=== PATIENT | female | born 1965 | race African-American/Black ===

== ENCOUNTER 2021-05-11 13:12 | Emergency (ER) | payer OTHER ==
[2021-05-11 13:23] VITALS: PULSE 92; BMI 35.4
[2021-05-11] MEDS ORDERED: ACETAMINOPHEN 1000 MG/100 ML VIAL (NON FORMULARY) IVPB ONE (14:39)
[2021-05-11] MEDS ORDERED: METOCLOPRAMIDE HCL INJECTION 10 MG/2 ML VIAL IVPB ONE (14:39)
[2021-05-11] MEDS ORDERED: SODIUM CHLORIDE 1,000 ML IV STA (14:39)
[2021-05-11] MEDS ORDERED: KETOROLAC TROMETHAMINE 60 MG/2 ML VIAL IVPUSH ONE (14:39)
[2021-05-11] MEDS ORDERED: METOCLOPRAMIDE HCL INJECTION 10 MG/2 ML VIAL ONE (14:43)
[2021-05-11] MEDS ORDERED: ACETAMINOPHEN INJECTION 100 ML IVPB ONE (14:43)
[2021-05-11 15:19] LABS: BASO % 1.6 % (0-2.0); EOS % 1.4 % (0-4.5); HEMATOCRIT 38.9 % (32.4-45.2); HEMOGLOBIN 12.9 GM/dL (10.7-15.3); LYMPH % 48.5 % (8-40); MCH 29.3 pg (25.7-33.7); MCHC 33.1 g/dl (32.0-36.0); MEAN CELL VOLUME 88.5 fl (80-96); MEAN PLT VOLUME 8.8 fl (7.5-11.1); MONO % 9.6 % (3.8-10.2); NEUT % 38.9 % (42.8-82.8); PLATELET COUNT 178 10^3/uL (134-434); RDW 15.1 % (11.6-15.6); WHITE BLOOD COUNT 4.3 K/mm3 (4.0-10.0)
[2021-05-11 15:26] LABS: INR 1.13 (0.83-1.09); PROTHROMBIN TIME (PATIENT) 13.6 SEC (9.7-13.0)
[2021-05-11 15:48] LABS: ALBUMIN 4.2 g/dl (3.4-5.0); BLOOD UREA NITROGEN 11.3 mg/dL (7-18); CALCIUM 9.5 mg/dL (8.5-10.1)
[2021-05-11 15:49] LABS: CREATININE 0.9 mg/dL (0.55-1.3)
[2021-05-11 15:51] LABS: BILIRUBIN,TOTAL 0.3 mg/dL (0.2-1); TOT PROT 7.7 g/dl (6.4-8.2)
[2021-05-11 16:52] LABS: EPI CELLS 29 /uL (0-25.1); HYALINE CASTS 5 /uL (0-3.1); URINE APPEARANCE CLEAR; URINE BACTERIA 1209 /uL (0-1359); URINE BILIRUBIN NEGATIVE (NEGATIVE); URINE COLOR YELLOW; URINE GLUCOSE (UA) NEGATIVE (NEGATIVE); URINE KETONE TRACE (NEGATIVE); URINE LEUK ESTERASE 2+ (NEGATIVE); URINE NITRITE NEGATIVE (NEGATIVE); URINE PROTEIN NEGATIVE (NEGATIVE); URINE RBC 47 /uL (0-23.9); URINE WBC 135 /uL (0-25.8)
[2021-05-11] MEDS ORDERED: KETOROLAC TROMETHAMINE 30 MG/1 ML VIAL ONE (17:00)
[2021-05-11 18:28] VITALS: BP 135/77; TEMP 98.7
== END 2021-05-11 18:12 | disposition home or self-care (01) ==
LOC: JER 13:12
PROC: 3E033NZ Introduction of Analgesics, Hypnotics, Sedatives into Peripheral Vein, Percutaneous Approach (ICD-10-PCS; principal; 2021-05-11)
PROC: 3E033GC Introduction of Other Therapeutic Substance into Peripheral Vein, Percutaneous Approach (ICD-10-PCS; 2021-05-11)
PROC: 3E0333Z Introduction of Anti-inflammatory into Peripheral Vein, Percutaneous Approach (ICD-10-PCS; 2021-05-11)
PROC: 3E0337Z Introduction of Electrolytic and Water Balance Substance into Peripheral Vein, Percutaneous Approach (ICD-10-PCS; 2021-05-11)
DX: R51.9 Headache, unspecified (principal); N30.00 Acute cystitis without hematuria
CPT/HCPCS: 36415; 70450-TC; 80053; 81003; 85025; 85610; 87086; 99285-25; J0131

== ENCOUNTER 2022-03-30 08:56 | Observation (INO) | payer OTHER ==
[2022-03-30 09:15] VITALS: BMI 35.4
[2022-03-30] MEDS: SODIUM CHLORIDE 1,000 ML IV SCH (10:20)
[2022-03-30 11:12] LABS: BASO % 1.1 % (0-2.0); EOS % 1.1 % (0-4.5); HEMATOCRIT 40.8 % (32.4-45.2); HEMOGLOBIN 13.3 GM/dL (10.7-15.3); LYMPH % 40.1 % (8-40); MCH 29.1 pg (25.7-33.7); MCHC 32.6 g/dl (32.0-36.0); MEAN CELL VOLUME 89.5 fl (80-96); MEAN PLT VOLUME 8.8 fl (7.5-11.1); NEUT % 47.7 % (42.8-82.8); PLATELET COUNT 173 10^3/uL (134-434); RBC 4.56 M/mm3 (3.60-5.2); RDW 14.3 % (11.6-15.6); WHITE BLOOD COUNT 4.2 K/mm3 (4.0-10.0)
[2022-03-30 11:15] LABS: EPI CELLS 8 /uL (0-25.1); HYALINE CASTS 0 /uL (0-3.1); PH,URINE 8.5 (5.0-8.0); URINE APPEARANCE CLEAR; URINE BACTERIA 137 /uL (0-1359); URINE BILIRUBIN NEGATIVE (NEGATIVE); URINE COLOR YELLOW; URINE GLUCOSE (UA) NEGATIVE (NEGATIVE); URINE KETONE NEGATIVE (NEGATIVE); URINE LEUK ESTERASE TRACE (NEGATIVE); URINE NITRITE NEGATIVE (NEGATIVE); URINE PROTEIN NEGATIVE (NEGATIVE); URINE RBC 5 /uL (0-23.9); URINE UROBILINOGEN 0.2 mg/dL (0.2-1.0); URINE WBC 4 /uL (0-25.8)
[2022-03-30 11:19] LABS: INR 1.11 (0.83-1.09); PROTHROMBIN TIME (PATIENT) 12.8 SEC (9.7-13.0)
[2022-03-30 11:22] LABS: ACTIVATED PTT 34.2 SECONDS (25.2-36.5)
[2022-03-30 11:35] LABS: CALCIUM 9.5 mg/dL (8.5-10.1)
[2022-03-30 11:36] LABS: ALBUMIN 4.1 g/dl (3.4-5.0); BLOOD UREA NITROGEN 9.2 mg/dL (7-18)
[2022-03-30 11:38] LABS: BILIRUBIN,TOTAL 0.4 mg/dL (0.2-1)
[2022-03-30 11:40] LABS: TOT PROT 7.2 g/dl (6.4-8.2)
[2022-03-30] MEDS ORDERED: POLYETHYLENE GLYCOL (HEALTHYLAX) 3350 17 GM PACKET PO PRN (14:33)
[2022-03-30] MEDS ORDERED: NAPROXEN 500 MG PO PRN (14:39)
[2022-03-30] MEDS ORDERED: LISINOPRIL 10 MG TABLET PO SCH (14:45)
[2022-03-30] MEDS ORDERED: LISINOPRIL 5 MG TABLET ONE (14:46)
[2022-03-30] MEDS: ASPIRIN COATED 81 MG TABLET.EC PO SCH (14:52)
[2022-03-30] MEDS ORDERED: MELATONIN 5 MG TABLETS PO PRN (15:26)
[2022-03-30] MEDS: traZODone HCL 50 MG TABLET (FP) PO SCH (23:13)
[2022-03-30] MEDS: ACETAMINOPHEN 325 MG TABLET (FP) PO PRN (23:14)
[2022-03-30] MEDS: ATORVASTATIN CA 10 MG TABLET (FP) PO SCH (23:16)
[2022-03-31 06:57] LABS: BASO % 0.8 % (0-2.0); EOS % 2.8 % (0-4.5); HEMATOCRIT 38.9 % (32.4-45.2); HEMOGLOBIN 12.5 GM/dL (10.7-15.3); LYMPH % 41.2 % (8-40); MCH 29.2 pg (25.7-33.7); MCHC 32.2 g/dl (32.0-36.0); MEAN CELL VOLUME 90.6 fl (80-96); MEAN PLT VOLUME 9.2 fl (7.5-11.1); MONO % 10.4 % (3.8-10.2); NEUT % 44.8 % (42.8-82.8); PLATELET COUNT 162 10^3/uL (134-434); RBC 4.29 M/mm3 (3.60-5.2); RDW 14.7 % (11.6-15.6); WHITE BLOOD COUNT 4.1 K/mm3 (4.0-10.0)
[2022-03-31 07:44] LABS: BLOOD UREA NITROGEN 11.6 mg/dL (7-18); CALCIUM 8.7 mg/dL (8.5-10.1)
[2022-03-31 07:47] LABS: CREATININE 0.9 mg/dL (0.55-1.3)
[2022-03-31] MEDS ORDERED: PATIENT'S OWN MEDICATION (NON-FORMULARY) (Dolutegravir Sodium/Lamivudine [Dovato 50-300 Mg PO SCH (10:00)
[2022-03-31] MEDS ORDERED: PNEUMOC 20-VAL CONJ-DIP CRM/PF 0.5 ML SYRINGE IM ONE (10:00)
[2022-03-31] MEDS: amLODIPine BESYLATE 10 MG TABLET (FP) PO SCH (10:07)
[2022-03-31] MEDS: SODIUM CHLORIDE 1,000 ML IV SCH (10:07)
[2022-03-31] MEDS: ASPIRIN COATED 81 MG TABLET.EC PO SCH (10:07)
[2022-03-31] MEDS: SERTRALINE HCL 50 MG TABLET (FP) PO SCH (10:07)
[2022-03-31] MEDS: ENOXAPARIN NA (PORCINE) 40 MG/0.4 ML DISP.SYRIN SQ SCH (10:08)
[2022-03-31] MEDS: DOLUTEGRAVIR SODIUM 50 MG TABLET (NON-FORMULARY) PO SCH (10:34)
[2022-03-31] MEDS: lamiVUDine 150 MG TABLET PO SCH (10:34)
[2022-03-31] MEDS: traZODone HCL 50 MG TABLET (FP) PO SCH (21:31)
[2022-03-31] MEDS: ATORVASTATIN CA 10 MG TABLET (FP) PO SCH (21:31)
[2022-04-01 07:22] LABS: BASO % 0.8 % (0-2.0); EOS % 2.7 % (0-4.5); HEMATOCRIT 38.1 % (32.4-45.2); HEMOGLOBIN 12.5 GM/dL (10.7-15.3); LYMPH % 42.6 % (8-40); MCH 29.5 pg (25.7-33.7); MCHC 32.8 g/dl (32.0-36.0); MEAN CELL VOLUME 90.1 fl (80-96); MEAN PLT VOLUME 8.3 fl (7.5-11.1); MONO % 12.1 % (3.8-10.2); NEUT % 41.8 % (42.8-82.8); PLATELET COUNT 142 10^3/uL (134-434); RBC 4.23 M/mm3 (3.60-5.2); RDW 14.5 % (11.6-15.6); WHITE BLOOD COUNT 3.5 K/mm3 (4.0-10.0)
[2022-04-01 07:40] LABS: ALBUMIN 3.5 g/dl (3.4-5.0); BLOOD UREA NITROGEN 12.4 mg/dL (7-18); CALCIUM 9.4 mg/dL (8.5-10.1); MAGNESIUM 2.5 mg/dL (1.8-2.4)
[2022-04-01 07:44] LABS: PHOSPHOROUS 4.4 mg/dL (2.5-4.9)
[2022-04-01 07:45] LABS: BILIRUBIN,TOTAL 0.4 mg/dL (0.2-1)
[2022-04-01 07:46] LABS: TOT PROT 6.5 g/dl (6.4-8.2)
[2022-04-01] MEDS: ACETAMINOPHEN 325 MG TABLET (FP) PO PRN (09:00)
[2022-04-01] MEDS: ENOXAPARIN NA (PORCINE) 40 MG/0.4 ML DISP.SYRIN SQ SCH (09:15)
[2022-04-01] MEDS: ASPIRIN COATED 81 MG TABLET.EC PO SCH (09:16)
[2022-04-01] MEDS: amLODIPine BESYLATE 10 MG TABLET (FP) PO SCH (09:16)
[2022-04-01] MEDS: SERTRALINE HCL 50 MG TABLET (FP) PO SCH (09:16)
[2022-04-01] MEDS: lamiVUDine 150 MG TABLET PO SCH (09:17)
[2022-04-01] MEDS: DOLUTEGRAVIR SODIUM 50 MG TABLET (NON-FORMULARY) PO SCH (09:17)
[2022-04-01 14:32] VITALS: BP 125/69; PULSE 91; TEMP 98.9
== END 2022-04-01 17:28 | disposition home or self-care (01) ==
LOC: JER 08:56 → JERBED 12:43 → UNDOADMOB 12:43 → INTOOBSV 12:43 → JERBED 12:44 → J4W 21:23
PROVIDERS: ADMIT Internal Medicine; ATTEND Internal Medicine
PROC: 3E023GC Introduction of Other Therapeutic Substance into Muscle, Percutaneous Approach (ICD-10-PCS; principal; 2022-03-30)
PROC: 3E0337Z Introduction of Electrolytic and Water Balance Substance into Peripheral Vein, Percutaneous Approach (ICD-10-PCS; 2022-03-30)
DX: Z87.891 Personal history of nicotine dependence (principal); E66.8 Other obesity; Z68.35 Body mass index [BMI] 35.0-35.9, adult; F32.9 Major depressive disorder, single episode, unspecified; R41.82 Altered mental status, unspecified; H81.10 Benign paroxysmal vertigo, unspecified ear; E78.5 Hyperlipidemia, unspecified; R73.03 Prediabetes; Z29.8 Encounter for other specified prophylactic measures; Z21 Asymptomatic human immunodeficiency virus [HIV] infection status
CPT/HCPCS: 0241U-QW; 36415; 70450-TC; 70551-TC; 71046-TC-FY; 80048; 80053; 80061; 81003; 83036; 83735; 84100; 84439; 84443; 85025; 85610; 85730; 86850; 86900; 86901; 93005; 93010; 93306-TC; 93880-TC; 99285-25; G0378

== ENCOUNTER 2022-06-19 15:33 | Inpatient (IN) | payer OTHER ==
[2022-06-19 15:37] VITALS: BMI 34.9
[2022-06-19] MEDS ORDERED: ACETAMINOPHEN 500 MG TABLET (FP) PO ONE (17:18)
[2022-06-19] MEDS ORDERED: MECLIZINE HCL 25 MG TABLET (FP) PO ONE (17:18)
[2022-06-19] MEDS ORDERED: MECLIZINE HCL 25 MG TABLET (FP) ONE (17:43)
[2022-06-19] MEDS ORDERED: ACETAMINOPHEN 500 MG TABLET (FP) ONE (17:43)
[2022-06-19 18:34] LABS: BASO % 0.5 % (0-2.0); EOS % 0.8 % (0-4.5); HEMATOCRIT 40.8 % (32.4-45.2); HEMOGLOBIN 13.3 GM/dL (10.7-15.3); LYMPH % 31.5 % (8-40); MCH 29.4 pg (25.7-33.7); MCHC 32.7 g/dl (32.0-36.0); MEAN CELL VOLUME 89.9 fl (80-96); MEAN PLT VOLUME 8.9 fl (7.5-11.1); MONO % 6.6 % (3.8-10.2); NEUT % 60.6 % (42.8-82.8); PLATELET COUNT 167 10^3/uL (134-434); RBC 4.53 M/mm3 (3.60-5.2); RDW 14.6 % (11.6-15.6); WHITE BLOOD COUNT 5.5 K/mm3 (4.0-10.0)
[2022-06-19 18:41] LABS: INR 1.13 (0.83-1.09)
[2022-06-19 18:44] LABS: ACTIVATED PTT 32.5 SECONDS (25.2-36.5)
[2022-06-19 18:45] LABS: CALCIUM 9.1 mg/dL (8.5-10.1)
[2022-06-19 18:46] LABS: BLOOD UREA NITROGEN 8.9 mg/dL (7-18)
[2022-06-19 18:49] LABS: CREATININE 0.9 mg/dL (0.55-1.3)
[2022-06-19 18:51] LABS: BILIRUBIN,TOTAL 0.4 mg/dL (0.2-1); TOT PROT 7.3 g/dl (6.4-8.2)
[2022-06-19 21:32] LABS: EPI CELLS 4 /uL (0-25.1); HYALINE CASTS 0 /uL (0-3.1); PH,URINE 7.5 (5.0-8.0); URINE APPEARANCE CLEAR; URINE BACTERIA 13 /uL (0-1359); URINE BILIRUBIN NEGATIVE (NEGATIVE); URINE COLOR YELLOW; URINE GLUCOSE (UA) NEGATIVE (NEGATIVE); URINE KETONE NEGATIVE (NEGATIVE); URINE LEUK ESTERASE 1+ (NEGATIVE); URINE NITRITE NEGATIVE (NEGATIVE); URINE PROTEIN NEGATIVE (NEGATIVE); URINE RBC 30 /uL (0-23.9); URINE UROBILINOGEN 0.2 mg/dL (0.2-1.0); URINE WBC 48 /uL (0-25.8)
[2022-06-19] MEDS ORDERED: POLYETHYLENE GLYCOL (HEALTHYLAX) 3350 17 GM PACKET PO PRN (21:39)
[2022-06-19] MEDS ORDERED: MELATONIN 5 MG TABLETS PO PRN (21:39)
[2022-06-19] MEDS ORDERED: PATIENT'S OWN MEDICATION (NON-FORMULARY) (Dolutegravir Sodium/Lamivudine [Dovato 50-300 Mg PO SCH (21:45)
[2022-06-19] MEDS ORDERED: MECLIZINE HCL 12.5 MG TABLET PO ONE (23:01)
[2022-06-19] MEDS ORDERED: MECLIZINE HCL 12.5 MG TABLET ONE (23:31)
[2022-06-19] MEDS ORDERED: ATORVASTATIN CA 10 MG TABLET (FP) ONE (23:31)
[2022-06-19] MEDS: lamiVUDine 150 MG TABLET PO SCH (23:53)
[2022-06-19] MEDS: ATORVASTATIN CA 10 MG TABLET (FP) PO SCH (23:54)
[2022-06-19] MEDS: traZODone HCL 100 MG TABLET (FP) PO SCH (23:54)
[2022-06-20] MEDS: DOLUTEGRAVIR SODIUM 50 MG TABLET (NON-FORMULARY) PO SCH ×2 (00:13→10:26)
[2022-06-20 07:28] LABS: HEMATOCRIT 41.4 % (32.4-45.2); HEMOGLOBIN 13.8 GM/dL (10.7-15.3); MCH 29.8 pg (25.7-33.7); MCHC 33.2 g/dl (32.0-36.0); MEAN CELL VOLUME 89.6 fl (80-96); MEAN PLT VOLUME 8.7 fl (7.5-11.1); PLATELET COUNT 169 10^3/uL (134-434); RBC 4.62 M/mm3 (3.60-5.2); RDW 14.9 % (11.6-15.6); WHITE BLOOD COUNT 4.5 K/mm3 (4.0-10.0)
[2022-06-20 07:44] LABS: CALCIUM 9.3 mg/dL (8.5-10.1)
[2022-06-20 07:45] LABS: BLOOD UREA NITROGEN 9.3 mg/dL (7-18); MAGNESIUM 2.4 mg/dL (1.8-2.4)
[2022-06-20 07:48] LABS: CREATININE 1.1 mg/dL (0.55-1.3); PHOSPHOROUS 4.1 mg/dL (2.5-4.9)
[2022-06-20 07:49] LABS: BILIRUBIN,TOTAL 0.4 mg/dL (0.2-1)
[2022-06-20 07:50] LABS: TOT PROT 7.3 g/dl (6.4-8.2)
[2022-06-20] MEDS ORDERED: SERTRALINE HCL 50 MG TABLET (FP) ONE (10:17)
[2022-06-20] MEDS ORDERED: amLODIPine BESYLATE 10 MG TABLET (FP) ONE (10:17)
[2022-06-20] MEDS ORDERED: ENOXAPARIN NA (PORCINE) 40 MG/0.4 ML DISP.SYRIN SQ ONE (10:17)
[2022-06-20] MEDS: amLODIPine BESYLATE 10 MG TABLET (FP) PO SCH (10:26)
[2022-06-20] MEDS: lamiVUDine 150 MG TABLET PO SCH (10:26)
[2022-06-20] MEDS: SERTRALINE HCL 50 MG TABLET (FP) PO SCH (10:26)
[2022-06-20] MEDS: ENOXAPARIN NA (PORCINE) 40 MG/0.4 ML DISP.SYRIN SQ SCH (10:30)
[2022-06-20 11:12] LABS: EPI CELLS 9 /uL (0-25.1); HYALINE CASTS 1 /uL (0-3.1); PH,URINE 6.5 (5.0-8.0); URINE APPEARANCE CLEAR; URINE BACTERIA 19 /uL (0-1359); URINE BILIRUBIN NEGATIVE (NEGATIVE); URINE COLOR YELLOW; URINE GLUCOSE (UA) NEGATIVE (NEGATIVE); URINE KETONE NEGATIVE (NEGATIVE); URINE LEUK ESTERASE 2+ (NEGATIVE); URINE NITRITE NEGATIVE (NEGATIVE); URINE PROTEIN NEGATIVE (NEGATIVE); URINE RBC 30 /uL (0-23.9); URINE WBC 19 /uL (0-25.8)
[2022-06-20 12:42] LABS: URINE BARBITURATES NEGATIVE (NEGATIVE)
[2022-06-20 12:43] LABS: COCAINE, UR NEGATIVE (NEGATIVE); METHADONE, UR NEGATIVE (NEGATIVE); OPIATES, URI NEGATIVE (NEGATIVE); PHENCYCLIDINE,URINE NEGATIVE (NEGATIVE); URINE BENZODIAZEPINES NEGATIVE (NEGATIVE)
[2022-06-20 12:44] LABS: URINE AMPHETAMINES NEGATIVE (NEGATIVE)
[2022-06-20] MEDS ORDERED: traZODone HCL 50 MG TABLET (FP) ONE (20:51)
[2022-06-20] MEDS: ATORVASTATIN CA 10 MG TABLET (FP) PO SCH (21:25)
[2022-06-20] MEDS: traZODone HCL 100 MG TABLET (FP) PO SCH (21:27)
[2022-06-21 07:43] LABS: BASO % 0.7 % (0-2.0); EOS % 2.5 % (0-4.5); HEMATOCRIT 38.8 % (32.4-45.2); HEMOGLOBIN 12.8 GM/dL (10.7-15.3); LYMPH % 40.7 % (8-40); MCH 29.6 pg (25.7-33.7); MEAN CELL VOLUME 89.7 fl (80-96); MEAN PLT VOLUME 8.6 fl (7.5-11.1); MONO % 10.5 % (3.8-10.2); NEUT % 45.6 % (42.8-82.8); PLATELET COUNT 141 10^3/uL (134-434); RBC 4.33 M/mm3 (3.60-5.2); RDW 15.2 % (11.6-15.6); WHITE BLOOD COUNT 3.9 K/mm3 (4.0-10.0)
[2022-06-21 08:10] LABS: ALBUMIN 3.4 g/dl (3.4-5.0); BLOOD UREA NITROGEN 15.2 mg/dL (7-18); CALCIUM 9.1 mg/dL (8.5-10.1); MAGNESIUM 2.3 mg/dL (1.8-2.4)
[2022-06-21 08:12] LABS: BILIRUBIN,TOTAL 0.3 mg/dL (0.2-1); TOT PROT 6.4 g/dl (6.4-8.2)
[2022-06-21] MEDS: SERTRALINE HCL 50 MG TABLET (FP) PO SCH (09:24)
[2022-06-21] MEDS: amLODIPine BESYLATE 10 MG TABLET (FP) PO SCH (09:24)
[2022-06-21] MEDS: DOLUTEGRAVIR SODIUM 50 MG TABLET (NON-FORMULARY) PO SCH (09:24)
[2022-06-21] MEDS: lamiVUDine 150 MG TABLET PO SCH (09:25)
[2022-06-21] MEDS: ENOXAPARIN NA (PORCINE) 40 MG/0.4 ML DISP.SYRIN SQ SCH (09:25)
[2022-06-21] MEDS ORDERED: traZODone HCL 50 MG TABLET (FP) ONE (21:25)
[2022-06-21] MEDS: traZODone HCL 100 MG TABLET (FP) PO SCH (21:40)
[2022-06-21] MEDS: ATORVASTATIN CA 10 MG TABLET (FP) PO SCH (21:40)
[2022-06-22 07:58] LABS: BASO % 0.6 % (0-2.0); HEMATOCRIT 39.8 % (32.4-45.2); LYMPH % 40.7 % (8-40); MCH 29.2 pg (25.7-33.7); MCHC 32.6 g/dl (32.0-36.0); MEAN CELL VOLUME 89.6 fl (80-96); MEAN PLT VOLUME 8.7 fl (7.5-11.1); MONO % 9.8 % (3.8-10.2); NEUT % 45.9 % (42.8-82.8); PLATELET COUNT 154 10^3/uL (134-434); RBC 4.44 M/mm3 (3.60-5.2); WHITE BLOOD COUNT 3.8 K/mm3 (4.0-10.0)
[2022-06-22 08:25] LABS: ALBUMIN 3.5 g/dl (3.4-5.0); BLOOD UREA NITROGEN 14.2 mg/dL (7-18)
[2022-06-22 08:26] LABS: MAGNESIUM 2.1 mg/dL (1.8-2.4)
[2022-06-22 08:29] LABS: CREATININE 1.1 mg/dL (0.55-1.3); PHOSPHOROUS 3.7 mg/dL (2.5-4.9)
[2022-06-22 08:31] VITALS: BP 155/86; PULSE 85; RESP 19; TEMP 98.6
[2022-06-22 08:31] LABS: BILIRUBIN,TOTAL 0.4 mg/dL (0.2-1); TOT PROT 6.5 g/dl (6.4-8.2)
[2022-06-22] MEDS: DOLUTEGRAVIR SODIUM 50 MG TABLET (NON-FORMULARY) PO SCH (09:39)
[2022-06-22] MEDS: lamiVUDine 150 MG TABLET PO SCH (09:39)
[2022-06-22] MEDS ORDERED: SERTRALINE HCL 50 MG TABLET (FP) PO SCH (22:00)
== END 2022-06-22 19:35 | disposition home or self-care (01) | DRG 724 ==
LOC: JER 15:33 → JERBED 19:04 → J4W 06-20 13:16
PROVIDERS: ADMIT Internal Medicine; ATTEND Internal Medicine
DX: A53.9 Syphilis, unspecified (principal); Z21 Asymptomatic human immunodeficiency virus [HIV] infection status; R51.9 Headache, unspecified; H53.8 Other visual disturbances; G45.8 Other transient cerebral ischemic attacks and related syndromes; E78.5 Hyperlipidemia, unspecified; I10 Essential (primary) hypertension; F32.A Depression, unspecified; E66.9 Obesity, unspecified; Z68.34 Body mass index [BMI] 34.0-34.9, adult; I51.7 Cardiomegaly; R42 Dizziness and giddiness; R41.82 Altered mental status, unspecified; R55 Syncope and collapse
CPT/HCPCS: 36415; 70450-TC; 70553-TC; 71045-TC-FY; 80053; 80307; 81003; 82607; 83735; 84100; 84439; 84443; 84484; 85025; 85027; 85610; 85730; 86359; 86360; 86593; 86780; 87086; 99285-25; A9579; C9803-CS; U0003; U0005

== ENCOUNTER → 2022-07-24 | Day surgery (SDC) | payer OTHER | END | disposition home or self-care (01) | LOC: JRADIR 10:36 | PROVIDERS: ATTEND Internal Medicine Endocrinology, Diabetes & Metabolism | PROC: 0G9K3ZX Drainage of Thyroid Gland, Percutaneous Approach, Diagnostic (ICD-10-PCS; principal; 2022-07-24) | DX: E04.1 Nontoxic single thyroid nodule (principal) | CPT/HCPCS: 10005; 76942; 88173; 88305-TC ==

== ENCOUNTER 2022-12-10 20:34 | Emergency (ER) | payer OTHER ==
[2022-12-10 20:48] VITALS: BMI 34.4
[2022-12-10 22:04] LABS: EPI CELLS 8 /uL (0-25.1); HYALINE CASTS 1 /uL (0-3.1); URINE APPEARANCE CLOUDY; URINE BACTERIA 9 /uL (0-1359); URINE BILIRUBIN NEGATIVE (NEGATIVE); URINE COLOR YELLOW; URINE GLUCOSE (UA) NEGATIVE (NEGATIVE); URINE KETONE NEGATIVE (NEGATIVE); URINE LEUK ESTERASE TRACE (NEGATIVE); URINE NITRITE NEGATIVE (NEGATIVE); URINE PROTEIN 1+ (NEGATIVE); URINE RBC 158 /uL (0-23.9); URINE WBC 29 /uL (0-25.8)
[2022-12-10 23:39] LABS: BASO % 0.5 % (0-2.0); HEMATOCRIT 43.5 % (32.4-45.2); HEMOGLOBIN 14.2 GM/dL (10.7-15.3); LYMPH % 29.1 % (8-40); MCH 29.1 pg (25.7-33.7); MCHC 32.6 g/dl (32.0-36.0); MEAN CELL VOLUME 89.2 fl (80-96); MEAN PLT VOLUME 8.9 fl (7.5-11.1); MONO % 8.1 % (3.8-10.2); NEUT % 61.3 % (42.8-82.8); PLATELET COUNT 198 10^3/uL (134-434); RBC 4.88 M/mm3 (3.60-5.2); RDW 15.5 % (11.6-15.6)
[2022-12-11 00:27] LABS: ALBUMIN 3.3 g/dl (3.4-5.0); CALCIUM 8.3 mg/dL (8.5-10.1)
[2022-12-11 00:30] LABS: CREATININE 0.8 mg/dL (0.55-1.3)
[2022-12-11 00:32] LABS: BILIRUBIN,TOTAL 0.6 mg/dL (0.2-1); TOT PROT 6.6 g/dl (6.4-8.2)
[2022-12-11 03:25] VITALS: BP 118/72; PULSE 104; RESP 18; TEMP 98.2
== END 2022-12-11 03:25 | disposition short-term general hospital (02) ==
LOC: JER 20:34
DX: T81.40XA Infection following a procedure, unspecified, initial encounter (principal); R00.2 Palpitations
CPT/HCPCS: 0241U-QW; 36415; 71045-TC-FY; 80053; 81003; 84436; 84443; 84484; 85025; 87086; 93005; 93010; 99285-25

== ENCOUNTER 2023-04-16 18:41 | Inpatient (IN) | payer OTHER ==
[2023-04-16 20:03] LABS: BASO % 0.5 % (0-2.0); EOS % 0.4 % (0-4.5); HEMATOCRIT 41.8 % (32.4-45.2); HEMOGLOBIN 13.7 GM/dL (10.7-15.3); LYMPH % 21.2 % (8-40); MCH 28.6 pg (25.7-33.7); MCHC 32.9 g/dl (32.0-36.0); MEAN CELL VOLUME 87.1 fl (80-96); MEAN PLT VOLUME 9.4 fl (7.5-11.1); MONO % 4.9 % (3.8-10.2); PLATELET COUNT 206 10^3/uL (134-434); RDW 15.8 % (11.6-15.6); WHITE BLOOD COUNT 8.1 K/mm3 (4.0-10.0)
[2023-04-16 20:09] LABS: INR 1.12 (0.83-1.09)
[2023-04-16 20:21] LABS: CHLORIDE 106 mmol/L (98-107); POTASSIUM 3.7 mmol/L (3.5-5.1); SODIUM 138 mmol/L (136-145)
[2023-04-16 20:23] LABS: ALBUMIN 4.4 g/dl (3.4-5.0); ANION GAP 8 MMOL/L (8-16); CALCIUM 9.4 mg/dL (8.5-10.1); CO2 25 mmol/L (21-32)
[2023-04-16 20:24] LABS: GLUCOSE,RANDOM 130 mg/dL (74-106)
[2023-04-16 20:25] LABS: BLOOD UREA NITROGEN 13.8 mg/dL (7-18)
[2023-04-16 20:26] LABS: CREATININE 0.9 mg/dL (0.55-1.3); SGPT/ALT 30 U/L (13-61)
[2023-04-16 20:27] LABS: SGOT/AST 29 U/L (15-37)
[2023-04-16 20:28] LABS: CHOLESTEROL 202 mg/dL (50-200)
[2023-04-16 20:29] LABS: BILIRUBIN,TOTAL 0.6 mg/dL (0.2-1); LDL CHOLESTEROL (ONLY SJRH) 102 mg/dL (5-100)
[2023-04-16 20:30] LABS: ALK PHOS 89 U/L (45-117)
[2023-04-16 20:31] LABS: HDL CHOLESTEROL 75 mg/dL (40-60)
[2023-04-16] MEDS ORDERED: ONDANSETRON 4 MG/2 ML VIAL ONE (21:00)
[2023-04-16] MEDS ORDERED: ONDANSETRON 4 MG/2 ML VIAL IVPUSH ONE ×2 (21:24→21:25)
[2023-04-16] MEDS ORDERED: ASPIRIN 81 MG CHEWABLE TABLETS PO STA (22:02)
[2023-04-16] MEDS ORDERED: ASPIRIN 81 MG CHEWABLE TABLETS ONE (22:25)
[2023-04-16] MEDS ORDERED: POLYETHYLENE GLYCOL (HEALTHYLAX) 3350 17 GM PACKET PO PRN (22:51)
[2023-04-17 02:52] VITALS: BMI 33.4
[2023-04-17 06:51] LABS: HEMATOCRIT 39.6 % (32.4-45.2); HEMOGLOBIN 13.7 GM/dL (10.7-15.3); MCH 29.9 pg (25.7-33.7); MCHC 34.6 g/dl (32.0-36.0); MEAN CELL VOLUME 86.6 fl (80-96); MEAN PLT VOLUME 9.4 fl (7.5-11.1); PLATELET COUNT 190 10^3/uL (134-434); RBC 4.57 M/mm3 (3.60-5.2); RDW 15.8 % (11.6-15.6); WHITE BLOOD COUNT 7.6 K/mm3 (4.0-10.0)
[2023-04-17 07:03] LABS: EPI CELLS 9 /uL (0-25.1); HYALINE CASTS 1 /uL (0-3.1); PH,URINE 5.5 (5.0-8.0); URINE APPEARANCE CLEAR; URINE BACTERIA 18 /uL (0-1359); URINE BILIRUBIN NEGATIVE (NEGATIVE); URINE COLOR YELLOW; URINE GLUCOSE (UA) NEGATIVE (NEGATIVE); URINE KETONE NEGATIVE (NEGATIVE); URINE LEUK ESTERASE NEGATIVE (NEGATIVE); URINE NITRITE NEGATIVE (NEGATIVE); URINE PROTEIN 2+ (NEGATIVE); URINE UROBILINOGEN 0.2 mg/dL (0.2-1.0); URINE WBC 8 /uL (0-25.8)
[2023-04-17 07:37] LABS: POTASSIUM 3.5 mmol/L (3.5-5.1)
[2023-04-17 07:40] LABS: CALCIUM 8.8 mg/dL (8.5-10.1)
[2023-04-17 07:41] LABS: ALBUMIN 3.9 g/dl (3.4-5.0); BLOOD UREA NITROGEN 11.4 mg/dL (7-18); MAGNESIUM 1.9 mg/dL (1.8-2.4)
[2023-04-17 07:44] LABS: PHOSPHOROUS 2.6 mg/dL (2.5-4.9)
[2023-04-17 07:45] LABS: BILIRUBIN,TOTAL 0.7 mg/dL (0.2-1)
[2023-04-17 07:46] LABS: TOT PROT 7.5 g/dl (6.4-8.2)
[2023-04-17] MEDS: DOLUTEGRAVIR SODIUM 50 MG TABLET (NON-FORMULARY) PO SCH (09:35)
[2023-04-17] MEDS: amLODIPine BESYLATE 10 MG TABLET (FP) PO SCH (09:35)
[2023-04-17] MEDS: lamiVUDine 150 MG TABLET PO SCH (09:35)
[2023-04-17] MEDS: MULTIVITAMINS (DAILY MVI) TABLET (FP) PO SCH (09:35)
[2023-04-17] MEDS: CARVEDILOL 6.25 MG TABLET (FP) PO SCH ×2 (09:35→21:18)
[2023-04-17] MEDS ORDERED: PATIENT'S OWN MEDICATION (NON-FORMULARY) (Dolutegravir Sodium/Lamivudine [Dovato 50-300 Mg PO SCH (10:00)
[2023-04-17] MEDS ORDERED: ASPIRIN 81 MG CHEWABLE TABLETS PO SCH (10:00)
[2023-04-17] MEDS ORDERED: ENOXAPARIN NA (PORCINE) 40 MG/0.4 ML DISP.SYRIN SQ SCH (10:00)
[2023-04-17 11:48] LABS: COCAINE, UR NEGATIVE (NEGATIVE); METHADONE, UR NEGATIVE (NEGATIVE); PHENCYCLIDINE,URINE NEGATIVE (NEGATIVE); URINE BENZODIAZEPINES NEGATIVE (NEGATIVE)
[2023-04-17 11:49] LABS: OPIATES, URI NEGATIVE (NEGATIVE); URINE BARBITURATES NEGATIVE (NEGATIVE)
[2023-04-17 11:52] LABS: URINE AMPHETAMINES NEGATIVE (NEGATIVE)
[2023-04-17 15:29] LABS: URINE RBC 111.4 /uL (0-23.9)
[2023-04-17 15:38] LABS: YEAST NEGATIVE (NEGATIVE)
[2023-04-17] MEDS: traZODone HCL 100 MG TABLET (FP) PO SCH (21:18)
[2023-04-17] MEDS: SERTRALINE HCL 50 MG TABLET (FP) PO SCH (21:18)
[2023-04-17] MEDS: ATORVASTATIN CA 40 MG TABLET (FP) PO SCH (21:18)
[2023-04-17] MEDS ORDERED: ATORVASTATIN CA 10 MG TABLET (FP) PO SCH (22:00)
[2023-04-18 06:36] LABS: HEMATOCRIT 42.1 % (32.4-45.2); HEMOGLOBIN 14.3 GM/dL (10.7-15.3); MCH 29.7 pg (25.7-33.7); MCHC 33.9 g/dl (32.0-36.0); MEAN CELL VOLUME 87.5 fl (80-96); MEAN PLT VOLUME 9.4 fl (7.5-11.1); PLATELET COUNT 209 10^3/uL (134-434); RBC 4.81 M/mm3 (3.60-5.2); RDW 15.7 % (11.6-15.6); WHITE BLOOD COUNT 8.5 K/mm3 (4.0-10.0)
[2023-04-18 06:56] LABS: POTASSIUM 3.5 mmol/L (3.5-5.1)
[2023-04-18 06:58] LABS: BLOOD UREA NITROGEN 14.9 mg/dL (7-18)
[2023-04-18 07:01] LABS: CREATININE 1.1 mg/dL (0.55-1.3)
[2023-04-18] MEDS ORDERED: VALSARTAN 40 MG TABLET PO SCH ×2 (10:00)
[2023-04-18] MEDS: CARVEDILOL 6.25 MG TABLET (FP) PO SCH ×2 (10:07→22:43)
[2023-04-18] MEDS: lamiVUDine 150 MG TABLET PO SCH (10:07)
[2023-04-18] MEDS: MULTIVITAMINS (DAILY MVI) TABLET (FP) PO SCH (10:07)
[2023-04-18] MEDS: amLODIPine BESYLATE 10 MG TABLET (FP) PO SCH (10:07)
[2023-04-18] MEDS: DOLUTEGRAVIR SODIUM 50 MG TABLET (NON-FORMULARY) PO SCH (10:08)
[2023-04-18] MEDS ORDERED: CLOPIDOGREL BISULFATE 75 MG TABLET (FP) PO SCH (16:45)
[2023-04-18] MEDS: traZODone HCL 100 MG TABLET (FP) PO SCH (22:43)
[2023-04-18] MEDS: ATORVASTATIN CA 40 MG TABLET (FP) PO SCH (22:44)
[2023-04-18] MEDS: SERTRALINE HCL 50 MG TABLET (FP) PO SCH (22:44)
[2023-04-19] MEDS ORDERED: ACETAMINOPHEN 1000 MG/100 ML BAG IVPB PRN (01:29)
[2023-04-19 06:42] LABS: HEMATOCRIT 41.1 % (32.4-45.2); HEMOGLOBIN 14.3 GM/dL (10.7-15.3); MCH 30.3 pg (25.7-33.7); MCHC 34.7 g/dl (32.0-36.0); MEAN CELL VOLUME 87.4 fl (80-96); MEAN PLT VOLUME 9.1 fl (7.5-11.1); PLATELET COUNT 193 10^3/uL (134-434); RBC 4.71 M/mm3 (3.60-5.2); RDW 15.3 % (11.6-15.6); WHITE BLOOD COUNT 6.7 K/mm3 (4.0-10.0)
[2023-04-19 06:56] LABS: POTASSIUM 3.7 mmol/L (3.5-5.1)
[2023-04-19 07:00] LABS: BLOOD UREA NITROGEN 12.3 mg/dL (7-18); CALCIUM 8.7 mg/dL (8.5-10.1)
[2023-04-19] MEDS: lamiVUDine 150 MG TABLET PO SCH (09:08)
[2023-04-19] MEDS: MULTIVITAMINS (DAILY MVI) TABLET (FP) PO SCH (09:08)
[2023-04-19] MEDS: CARVEDILOL 6.25 MG TABLET (FP) PO SCH ×2 (09:08→22:05)
[2023-04-19] MEDS: DOLUTEGRAVIR SODIUM 50 MG TABLET (NON-FORMULARY) PO SCH (09:08)
[2023-04-19] MEDS: amLODIPine BESYLATE 10 MG TABLET (FP) PO SCH (09:09)
[2023-04-19] MEDS: VALSARTAN 80 MG TABLET PO SCH (09:09)
[2023-04-19 10:28] LABS: ANISOCYTOSIS 0; MACROCYTOSIS 0
[2023-04-19 14:02] LABS: BF GLUCOSE (CSF ONLY) 75 mg/dL (40-70)
[2023-04-19 14:49] LABS: CSF APPEARANCE CLEAR (CLEAR); CSF COLOR COLORLESS (COLORLESS); CSF WBC 1 mm3 (0-5)
[2023-04-19] MEDS: traZODone HCL 100 MG TABLET (FP) PO SCH (22:05)
[2023-04-19] MEDS: SERTRALINE HCL 50 MG TABLET (FP) PO SCH (22:05)
[2023-04-19] MEDS: ATORVASTATIN CA 40 MG TABLET (FP) PO SCH (22:05)
[2023-04-20 07:41] LABS: POTASSIUM 3.2 mmol/L (3.5-5.1)
[2023-04-20 07:42] LABS: CALCIUM 8.6 mg/dL (8.5-10.1)
[2023-04-20 07:43] LABS: BLOOD UREA NITROGEN 12.2 mg/dL (7-18)
[2023-04-20 07:46] LABS: CREATININE 0.9 mg/dL (0.55-1.3)
[2023-04-20] MEDS ORDERED: POTASSIUM CHLORIDE TABS 20 MEQ TABLET.ER (FP) PO ONE (07:52)
[2023-04-20] MEDS: amLODIPine BESYLATE 10 MG TABLET (FP) PO SCH (09:05)
[2023-04-20] MEDS: MULTIVITAMINS (DAILY MVI) TABLET (FP) PO SCH (09:05)
[2023-04-20] MEDS: DOLUTEGRAVIR SODIUM 50 MG TABLET (NON-FORMULARY) PO SCH (09:05)
[2023-04-20] MEDS: lamiVUDine 150 MG TABLET PO SCH (09:05)
[2023-04-20] MEDS: CARVEDILOL 6.25 MG TABLET (FP) PO SCH ×2 (09:05→21:21)
[2023-04-20] MEDS: VALSARTAN 80 MG TABLET PO SCH (09:05)
[2023-04-20] MEDS: CLOPIDOGREL BISULFATE 75 MG TABLET (FP) PO SCH (09:07)
[2023-04-20] MEDS: ASPIRIN COATED 81 MG TABLET.EC PO SCH (09:07)
[2023-04-20] MEDS: traZODone HCL 100 MG TABLET (FP) PO SCH (21:20)
[2023-04-20] MEDS: ATORVASTATIN CA 40 MG TABLET (FP) PO SCH (21:20)
[2023-04-20] MEDS: MELATONIN 5 MG TABLETS PO PRN (21:21)
[2023-04-20] MEDS: SERTRALINE HCL 50 MG TABLET (FP) PO SCH (21:21)
[2023-04-21] MEDS: BENZOCAINE/MENTH/CETYLPYRD CL 1 EACH LOZENGE MM PRN ×3 (05:57→21:21)
[2023-04-21 07:16] LABS: BASO % 0.6 % (0-2.0); EOS % 1.1 % (0-4.5); HEMATOCRIT 38.4 % (32.4-45.2); HEMOGLOBIN 13.2 GM/dL (10.7-15.3); LYMPH % 40.5 % (8-40); MCH 29.8 pg (25.7-33.7); MCHC 34.5 g/dl (32.0-36.0); MEAN CELL VOLUME 86.5 fl (80-96); MEAN PLT VOLUME 9.1 fl (7.5-11.1); NEUT % 45.8 % (42.8-82.8); PLATELET COUNT 165 10^3/uL (134-434); RBC 4.44 M/mm3 (3.60-5.2); RDW 15.4 % (11.6-15.6); WHITE BLOOD COUNT 5.6 K/mm3 (4.0-10.0)
[2023-04-21 07:41] LABS: POTASSIUM 3.4 mmol/L (3.5-5.1)
[2023-04-21 07:45] LABS: ALBUMIN 3.4 g/dl (3.4-5.0); CALCIUM 8.6 mg/dL (8.5-10.1)
[2023-04-21 07:46] LABS: BLOOD UREA NITROGEN 14.2 mg/dL (7-18)
[2023-04-21 07:48] LABS: CREATININE 1.1 mg/dL (0.55-1.3)
[2023-04-21 07:50] LABS: BILIRUBIN,TOTAL 0.5 mg/dL (0.2-1); TOT PROT 6.3 g/dl (6.4-8.2)
[2023-04-21] MEDS: lamiVUDine 150 MG TABLET PO SCH (09:29)
[2023-04-21] MEDS: CLOPIDOGREL BISULFATE 75 MG TABLET (FP) PO SCH (09:29)
[2023-04-21] MEDS: DOLUTEGRAVIR SODIUM 50 MG TABLET (NON-FORMULARY) PO SCH (09:29)
[2023-04-21] MEDS: ASPIRIN COATED 81 MG TABLET.EC PO SCH (09:29)
[2023-04-21] MEDS: MULTIVITAMINS (DAILY MVI) TABLET (FP) PO SCH (09:29)
[2023-04-21] MEDS: POTASSIUM CHLORIDE TABS 20 MEQ TABLET.ER (FP) PO SCH (19:00)
[2023-04-21] MEDS: CARVEDILOL 6.25 MG TABLET (FP) PO SCH (21:44)
[2023-04-21] MEDS: ATORVASTATIN CA 40 MG TABLET (FP) PO SCH (21:44)
[2023-04-21] MEDS: traZODone HCL 100 MG TABLET (FP) PO SCH (21:44)
[2023-04-21] MEDS: SERTRALINE HCL 50 MG TABLET (FP) PO SCH (21:44)
[2023-04-22] MEDS: BENZOCAINE/MENTH/CETYLPYRD CL 1 EACH LOZENGE MM PRN (05:39)
[2023-04-22 09:30] LABS: POTASSIUM 3.8 mmol/L (3.5-5.1)
[2023-04-22 09:40] LABS: ALBUMIN 3.6 g/dl (3.4-5.0); BLOOD UREA NITROGEN 14.6 mg/dL (7-18); CALCIUM 8.8 mg/dL (8.5-10.1)
[2023-04-22 09:43] LABS: CREATININE 1.2 mg/dL (0.55-1.3)
[2023-04-22] MEDS: POTASSIUM CHLORIDE TABS 20 MEQ TABLET.ER (FP) PO SCH (09:44)
[2023-04-22] MEDS: CLOPIDOGREL BISULFATE 75 MG TABLET (FP) PO SCH (09:44)
[2023-04-22] MEDS: amLODIPine BESYLATE 10 MG TABLET (FP) PO SCH (09:44)
[2023-04-22] MEDS: ASPIRIN COATED 81 MG TABLET.EC PO SCH (09:44)
[2023-04-22 09:45] LABS: BILIRUBIN,TOTAL 0.5 mg/dL (0.2-1); TOT PROT 6.7 g/dl (6.4-8.2)
[2023-04-22] MEDS: MULTIVITAMINS (DAILY MVI) TABLET (FP) PO SCH (09:45)
[2023-04-22] MEDS: CARVEDILOL 6.25 MG TABLET (FP) PO SCH ×2 (09:45→21:06)
[2023-04-22] MEDS: DOLUTEGRAVIR SODIUM 50 MG TABLET (NON-FORMULARY) PO SCH (09:50)
[2023-04-22] MEDS: lamiVUDine 150 MG TABLET PO SCH (10:02)
[2023-04-22] MEDS: traZODone HCL 100 MG TABLET (FP) PO SCH (21:06)
[2023-04-22] MEDS: SERTRALINE HCL 50 MG TABLET (FP) PO SCH (21:06)
[2023-04-22] MEDS: ATORVASTATIN CA 40 MG TABLET (FP) PO SCH (21:06)
[2023-04-22] MEDS: MELATONIN 5 MG TABLETS PO PRN (21:08)
[2023-04-22 21:16] VITALS: RESP 17
[2023-04-23 06:03] VITALS: PULSE 77
[2023-04-23 09:22] VITALS: BP 109/70; TEMP 98.2
[2023-04-23] MEDS: MULTIVITAMINS (DAILY MVI) TABLET (FP) PO SCH (09:58)
[2023-04-23] MEDS: ASPIRIN COATED 81 MG TABLET.EC PO SCH (09:58)
[2023-04-23] MEDS: CARVEDILOL 6.25 MG TABLET (FP) PO SCH (09:58)
[2023-04-23] MEDS: POTASSIUM CHLORIDE TABS 20 MEQ TABLET.ER (FP) PO SCH (09:58)
[2023-04-23] MEDS: CLOPIDOGREL BISULFATE 75 MG TABLET (FP) PO SCH (09:59)
[2023-04-23] MEDS: amLODIPine BESYLATE 10 MG TABLET (FP) PO SCH (09:59)
[2023-04-23] MEDS: lamiVUDine 150 MG TABLET PO SCH (09:59)
[2023-04-23] MEDS: DOLUTEGRAVIR SODIUM 50 MG TABLET (NON-FORMULARY) PO SCH (09:59)
[2023-04-23] MEDS ORDERED: PENICILLIN G BENZATHINE 2,400,000 UNIT/4 ML PFS IM ONE (13:30)
== END 2023-04-23 14:44 | disposition home or self-care (01) | DRG 47 ==
LOC: JER 18:41 → JERBED 20:08 → J4S 04-17 02:11
PROVIDERS: ADMIT Internal Medicine; ATTEND Internal Medicine
PROC: 4A00X4Z Measurement of Central Nervous Electrical Activity, External Approach (ICD-10-PCS; 2023-04-17)
PROC: 009U3ZX Drainage of Spinal Canal, Percutaneous Approach, Diagnostic (ICD-10-PCS; principal; 2023-04-19)
DX: G45.8 Other transient cerebral ischemic attacks and related syndromes (principal); I10 Essential (primary) hypertension; E78.5 Hyperlipidemia, unspecified; F32.A Depression, unspecified; Z21 Asymptomatic human immunodeficiency virus [HIV] infection status; G93.49 Other encephalopathy; Z86.73 Personal history of transient ischemic attack (TIA), and cerebral infarction without residual deficits
CPT/HCPCS: 0241U-QW; 36415; 62272; 70450-TC; 70496-TC; 70498-TC; 70551-TC; 71045-TC-FY; 80048; 80053; 80061; 80307; 81003; 82550; 82607; 82746; 82945; 82962; 83036; 83735; 84100; 84157; 84439; 84443; 84484; 85025; 85027; 85610; 85730; 86359; 86360; 86592; 86593; 86780; 87040; 87070; 87086; 87205; 87536; 93005; 93010; 93306-TC; 94010; 95816; 97116-GP; 97161-GP; 99285-25; G0480

== ENCOUNTER 2023-07-28 13:20 | Inpatient (IN) | payer OTHER ==
[2023-07-28] MEDS ORDERED: SODIUM CHLORIDE 1,000 ML IV STA (16:45)
[2023-07-28] MEDS ORDERED: CLINDAMYCIN 600MG PREMIX IVPB 600 MG/50 ML BAG IVPB ONE ×3 (16:51→22:35)
[2023-07-28] MEDS ORDERED: ACETAMINOPHEN 1000 MG/100 ML BAG IVPB ONE (16:54)
[2023-07-28] MEDS ORDERED: ACETAMINOPHEN INJECTION 100 ML IVPB ONE (17:32)
[2023-07-28 17:38] LABS: BASO % 1.3 % (0-2.0); EOS % 1.7 % (0-4.5); HEMOGLOBIN 11.9 GM/dL (10.7-15.3); LYMPH % 40.3 % (8-40); MCH 29.1 pg (25.7-33.7); MCHC 33.1 g/dl (32.0-36.0); MEAN CELL VOLUME 87.8 fl (80-96); MEAN PLT VOLUME 8.5 fl (7.5-11.1); MONO % 14.6 % (3.8-10.2); NEUT % 42.1 % (42.8-82.8); PLATELET COUNT 189 10^3/uL (134-434); RBC 4.09 M/mm3 (3.60-5.2); RDW 13.5 % (11.6-15.6); WHITE BLOOD COUNT 3.4 K/mm3 (4.0-10.0)
[2023-07-28 17:50] LABS: EPI CELLS 3 /uL (0-25.1); HYALINE CASTS 1 /uL (0-3.1); PH,URINE 6.5 (5.0-8.0); URINE APPEARANCE CLEAR; URINE BACTERIA 3 /uL (0-1359); URINE BILIRUBIN NEGATIVE (NEGATIVE); URINE COLOR YELLOW; URINE GLUCOSE (UA) NEGATIVE (NEGATIVE); URINE KETONE NEGATIVE (NEGATIVE); URINE LEUK ESTERASE 1+ (NEGATIVE); URINE NITRITE NEGATIVE (NEGATIVE); URINE PROTEIN NEGATIVE (NEGATIVE); URINE RBC 71 /uL (0-23.9); URINE WBC 19 /uL (0-25.8)
[2023-07-28 17:52] LABS: ACTIVATED PTT 31.6 SECONDS (25.2-36.5); INR 1.13 (0.83-1.09); PROTHROMBIN TIME (PATIENT) 13.1 SEC (9.7-13.0)
[2023-07-28 18:04] LABS: POTASSIUM 3.3 mmol/L (3.5-5.1)
[2023-07-28 18:06] LABS: CALCIUM 8.4 mg/dL (8.5-10.1)
[2023-07-28 18:07] LABS: ALBUMIN 3.9 g/dl (3.4-5.0); BLOOD UREA NITROGEN 12.5 mg/dL (7-18)
[2023-07-28 18:10] LABS: CREATININE 0.9 mg/dL (0.55-1.3)
[2023-07-28 18:12] LABS: BILIRUBIN,TOTAL 0.3 mg/dL (0.2-1); TOT PROT 7.1 g/dl (6.4-8.2)
[2023-07-28] MEDS ORDERED: POTASSIUM CHLORIDE ORAL LIQUID 20 MEQ/15 ML PO ONE (19:10)
[2023-07-28 20:20] LABS: ERYTHROCYTE SEDIMENTATION RATE 20 mm/hr (0-30)
[2023-07-28] MEDS ORDERED: POTASSIUM CHLORIDE ORAL LIQUID 20 MEQ/15 ML ONE ×2 (20:32→20:40)
[2023-07-28] MEDS ORDERED: ENOXAPARIN NA (PORCINE) 40 MG/0.4 ML DISP.SYRIN SQ ONE (21:43)
[2023-07-28] MEDS: ENOXAPARIN NA (PORCINE) 40 MG/0.4 ML DISP.SYRIN SQ SCH (21:56)
[2023-07-28] MEDS: SODIUM CHLORIDE 1,000 ML IV SCH (21:56)
[2023-07-28] MEDS ORDERED: traZODone HCL 100 MG TABLET (FP) ONE (22:33)
[2023-07-28] MEDS ORDERED: SERTRALINE HCL 50 MG TABLET (FP) ONE (22:34)
[2023-07-28] MEDS ORDERED: ATORVASTATIN CA 40 MG TABLET (FP) ONE (22:34)
[2023-07-28] MEDS ORDERED: CARVEDILOL 6.25 MG TABLET (FP) ONE (22:50)
[2023-07-28] MEDS: CARVEDILOL 6.25 MG TABLET (FP) PO SCH (23:15)
[2023-07-28] MEDS: CLINDAMYCIN 600MG PREMIX IVPB 600 MG/50 ML BAG IVPB SCH (23:30)
[2023-07-28] MEDS: ATORVASTATIN CA 40 MG TABLET (FP) PO SCH (23:30)
[2023-07-28] MEDS: SERTRALINE HCL 50 MG TABLET (FP) PO SCH (23:30)
[2023-07-29] MEDS: traZODone HCL 50 MG TABLET (FP) PO SCH ×2 (03:59→22:53)
[2023-07-29] MEDS ORDERED: CLINDAMYCIN 600MG PREMIX IVPB 600 MG/50 ML BAG IVPB ONE ×2 (04:02→10:15)
[2023-07-29] MEDS: CLINDAMYCIN 600MG PREMIX IVPB 600 MG/50 ML BAG IVPB SCH ×3 (04:03→18:20)
[2023-07-29] MEDS ORDERED: INSULIN SLIDING SCALE (NOVOLOG) 1 VIAL SQ SCH (07:00)
[2023-07-29] MEDS: INSULIN SLIDING SCALE (NOVOLOG) 1 VIAL SQ SCH ×4 (07:56→23:31)
[2023-07-29 08:12] LABS: BASO % 0.7 % (0-2.0); EOS % 2.9 % (0-4.5); HEMOGLOBIN 11.1 GM/dL (10.7-15.3); LYMPH % 52.4 % (8-40); MCH 29.1 pg (25.7-33.7); MCHC 32.5 g/dl (32.0-36.0); MEAN CELL VOLUME 89.4 fl (80-96); MEAN PLT VOLUME 9.2 fl (7.5-11.1); PLATELET COUNT 183 10^3/uL (134-434); RDW 13.6 % (11.6-15.6); WHITE BLOOD COUNT 2.7 K/mm3 (4.0-10.0)
[2023-07-29 08:24] LABS: POTASSIUM 3.7 mmol/L (3.5-5.1)
[2023-07-29 08:32] LABS: BLOOD UREA NITROGEN 8.6 mg/dL (7-18)
[2023-07-29 08:33] LABS: BILIRUBIN,TOTAL 0.3 mg/dL (0.2-1); TOT PROT 6.4 g/dl (6.4-8.2)
[2023-07-29 08:34] LABS: CALCIUM 7.8 mg/dL (8.5-10.1)
[2023-07-29 08:35] LABS: ALBUMIN 3.3 g/dl (3.4-5.0); CREATININE 0.7 mg/dL (0.55-1.3)
[2023-07-29] MEDS ORDERED: PATIENT'S OWN MEDICATION (NON-FORMULARY) (Dolutegravir Sodium/Lamivudine [Dovato 50-300 Mg PO SCH (10:00)
[2023-07-29] MEDS: CARVEDILOL 6.25 MG TABLET (FP) PO SCH ×2 (10:11→22:53)
[2023-07-29] MEDS: amLODIPine BESYLATE 10 MG TABLET (FP) PO SCH (10:11)
[2023-07-29] MEDS: ENOXAPARIN NA (PORCINE) 40 MG/0.4 ML DISP.SYRIN SQ SCH (10:11)
[2023-07-29] MEDS: DOLUTEGRAVIR SODIUM 50 MG TABLET (NON-FORMULARY) PO SCH (10:12)
[2023-07-29] MEDS: CLOPIDOGREL BISULFATE 75 MG TABLET (FP) PO SCH (10:12)
[2023-07-29] MEDS: lamiVUDine 150 MG TABLET PO SCH (10:13)
[2023-07-29] MEDS ORDERED: CLOPIDOGREL BISULFATE 75 MG TABLET (FP) ONE (10:16)
[2023-07-29] MEDS: SODIUM CHLORIDE 1,000 ML IV SCH ×2 (18:20→22:54)
[2023-07-29 18:24] VITALS: BMI 33.3
[2023-07-29] MEDS: ATORVASTATIN CA 40 MG TABLET (FP) PO SCH (22:53)
[2023-07-29] MEDS: SERTRALINE HCL 50 MG TABLET (FP) PO SCH (22:53)
[2023-07-30] MEDS: CLINDAMYCIN 600MG PREMIX IVPB 600 MG/50 ML BAG IVPB SCH ×3 (01:25→17:50)
[2023-07-30] MEDS: INSULIN SLIDING SCALE (NOVOLOG) 1 VIAL SQ SCH ×4 (06:24→21:18)
[2023-07-30] MEDS: SODIUM CHLORIDE 1,000 ML IV SCH ×2 (06:25→18:21)
[2023-07-30] MEDS: CARVEDILOL 6.25 MG TABLET (FP) PO SCH ×2 (09:58→21:15)
[2023-07-30] MEDS: ENOXAPARIN NA (PORCINE) 40 MG/0.4 ML DISP.SYRIN SQ SCH (09:58)
[2023-07-30] MEDS: CLOPIDOGREL BISULFATE 75 MG TABLET (FP) PO SCH (09:58)
[2023-07-30] MEDS: amLODIPine BESYLATE 10 MG TABLET (FP) PO SCH (09:59)
[2023-07-30] MEDS: lamiVUDine 150 MG TABLET PO SCH (10:01)
[2023-07-30] MEDS: DOLUTEGRAVIR SODIUM 50 MG TABLET (NON-FORMULARY) PO SCH (10:01)
[2023-07-30 16:39] LABS: BASO % 0.5 % (0-2.0); EOS % 2.7 % (0-4.5); HEMATOCRIT 34.8 % (32.4-45.2); HEMOGLOBIN 11.5 GM/dL (10.7-15.3); LYMPH % 50.5 % (8-40); MCH 28.9 pg (25.7-33.7); MEAN CELL VOLUME 87.7 fl (80-96); MEAN PLT VOLUME 8.4 fl (7.5-11.1); MONO % 11.7 % (3.8-10.2); NEUT % 34.6 % (42.8-82.8); PLATELET COUNT 195 10^3/uL (134-434); RBC 3.97 M/mm3 (3.60-5.2); RDW 13.6 % (11.6-15.6); WHITE BLOOD COUNT 3.6 K/mm3 (4.0-10.0)
[2023-07-30] MEDS ORDERED: INSULIN (NOVOLOG) ASPART 100 UNITS/ML 10ML VIAL ONE (21:10)
[2023-07-30] MEDS: traZODone HCL 50 MG TABLET (FP) PO SCH (21:14)
[2023-07-30] MEDS: SERTRALINE HCL 50 MG TABLET (FP) PO SCH (21:15)
[2023-07-30] MEDS: ATORVASTATIN CA 40 MG TABLET (FP) PO SCH (21:15)
[2023-07-31 00:03] LABS: MAGNESIUM 1.9 mg/dL (1.8-2.4)
[2023-07-31 00:07] LABS: PHOSPHOROUS 3.3 mg/dL (2.5-4.9)
[2023-07-31] MEDS: CLINDAMYCIN 600MG PREMIX IVPB 600 MG/50 ML BAG IVPB SCH (01:27)
[2023-07-31 05:40] VITALS: PULSE 89
[2023-07-31] MEDS: INSULIN SLIDING SCALE (NOVOLOG) 1 VIAL SQ SCH ×2 (07:12→11:40)
[2023-07-31] MEDS ORDERED: CLINDAMYCIN HCL 150 MG CAPSULE (FP) PO SCH (07:45)
[2023-07-31] MEDS: SODIUM CHLORIDE 1,000 ML IV SCH (08:37)
[2023-07-31 09:51] LABS: BASO % 0.6 % (0-2.0); EOS % 2.8 % (0-4.5); HEMATOCRIT 35.7 % (32.4-45.2); HEMOGLOBIN 11.9 GM/dL (10.7-15.3); LYMPH % 44.4 % (8-40); MCH 29.4 pg (25.7-33.7); MCHC 33.3 g/dl (32.0-36.0); MEAN CELL VOLUME 88.2 fl (80-96); MEAN PLT VOLUME 8.2 fl (7.5-11.1); MONO % 8.8 % (3.8-10.2); NEUT % 43.4 % (42.8-82.8); PLATELET COUNT 203 10^3/uL (134-434); RBC 4.04 M/mm3 (3.60-5.2); RDW 13.8 % (11.6-15.6); WHITE BLOOD COUNT 3.4 K/mm3 (4.0-10.0)
[2023-07-31] MEDS: DOLUTEGRAVIR SODIUM 50 MG TABLET (NON-FORMULARY) PO SCH (09:59)
[2023-07-31] MEDS: lamiVUDine 150 MG TABLET PO SCH (09:59)
[2023-07-31] MEDS: amLODIPine BESYLATE 10 MG TABLET (FP) PO SCH (10:00)
[2023-07-31] MEDS: ENOXAPARIN NA (PORCINE) 40 MG/0.4 ML DISP.SYRIN SQ SCH (10:00)
[2023-07-31] MEDS: CARVEDILOL 6.25 MG TABLET (FP) PO SCH (10:00)
[2023-07-31] MEDS: CLOPIDOGREL BISULFATE 75 MG TABLET (FP) PO SCH (10:00)
[2023-07-31 10:12] LABS: POTASSIUM 3.9 mmol/L (3.5-5.1)
[2023-07-31 10:16] LABS: CALCIUM 8.6 mg/dL (8.5-10.1)
[2023-07-31 10:17] LABS: ALBUMIN 3.4 g/dl (3.4-5.0); BLOOD UREA NITROGEN 8.5 mg/dL (7-18); MAGNESIUM 1.9 mg/dL (1.8-2.4)
[2023-07-31 10:21] LABS: TOT PROT 6.8 g/dl (6.4-8.2)
[2023-07-31 10:22] LABS: BILIRUBIN,TOTAL 0.3 mg/dL (0.2-1)
[2023-07-31 11:36] VITALS: RESP 18
[2023-07-31 11:37] VITALS: BP 138/76; TEMP 98
== END 2023-07-31 11:50 | disposition home or self-care (01) | DRG 383 ==
LOC: JERFT 13:20 → JER 13:20 → JERBED 18:48 → J7W 07-29 18:03
PROVIDERS: ADMIT Internal Medicine; ATTEND Nurse Practitioner Family
DX: L03.116 Cellulitis of left lower limb (principal); Z21 Asymptomatic human immunodeficiency virus [HIV] infection status; I10 Essential (primary) hypertension; E78.5 Hyperlipidemia, unspecified; E11.9 Type 2 diabetes mellitus without complications; F41.8 Other specified anxiety disorders; G47.09 Other insomnia; Z86.73 Personal history of transient ischemic attack (TIA), and cerebral infarction without residual deficits
CPT/HCPCS: 36415; 80053; 81003; 82962; 83036; 83735; 84100; 84436; 84443; 84479; 85025; 85610; 85651; 85730; 86140; 86359; 86360; 87040; 87081; 93005; 93010; 93970-TC; 97116-GP; 97161-GP; 99285-25

== ENCOUNTER 2024-01-08 13:19 | Inpatient (IN) | payer OTHER ==
[2024-01-08 14:27] VITALS: BMI 33.2
[2024-01-08 14:34] LABS: INR 1.15 (0.83-1.09); PROTHROMBIN TIME (PATIENT) 13.3 SEC (9.7-13.0)
[2024-01-08 14:36] LABS: BASO % 0.4 % (0-2.0); HEMATOCRIT 41.9 % (32.4-45.2); HEMOGLOBIN 14.1 GM/dL (10.7-15.3); LYMPH % 15.9 % (8-40); MCH 29.6 pg (25.7-33.7); MCHC 33.6 g/dl (32.0-36.0); MEAN CELL VOLUME 88.2 fl (80-96); MEAN PLT VOLUME 8.6 fl (7.5-11.1); NEUT % 75.7 % (42.8-82.8); PLATELET COUNT 233 10^3/uL (134-434); RBC 4.75 M/mm3 (3.60-5.2); RDW 15.5 % (11.6-15.6); WHITE BLOOD COUNT 12.1 K/mm3 (4.0-10.0)
[2024-01-08 14:37] LABS: ACTIVATED PTT 29.1 SECONDS (25.2-36.5)
[2024-01-08 14:46] LABS: CHLORIDE 103 mmol/L (98-107); POTASSIUM 3.2 mmol/L (3.5-5.1); SODIUM 139 mmol/L (136-145)
[2024-01-08 14:48] LABS: CALCIUM 9.2 mg/dL (8.5-10.1)
[2024-01-08 14:49] LABS: ANION GAP 9 mmol/L (4-13); CO2 27 mmol/L (21-32)
[2024-01-08 14:50] LABS: BLOOD UREA NITROGEN 8.1 mg/dL (7-18); GLUCOSE,RANDOM 110 mg/dL (74-106)
[2024-01-08 14:52] LABS: CREATININE 0.9 mg/dL (0.55-1.3); SGOT/AST 125 U/L (15-37); SGPT/ALT 52 U/L (13-61)
[2024-01-08 14:53] LABS: CHOLESTEROL 206 mg/dL (50-200); TOT PROT 7.7 g/dl (6.4-8.2)
[2024-01-08 14:54] LABS: LDL CHOLESTEROL (ONLY SJRH) 86 mg/dL (5-100)
[2024-01-08 14:55] LABS: BILIRUBIN,TOTAL 0.6 mg/dL (0.2-1)
[2024-01-08 14:56] LABS: ALK PHOS 100 U/L (45-117); HDL CHOLESTEROL 95 mg/dL (40-60)
[2024-01-08] MEDS ORDERED: POTASSIUM CHLORIDE ORAL LIQUID 20 MEQ/15 ML ONE (15:22)
[2024-01-08] MEDS: POTASSIUM CHLORIDE ORAL LIQUID 20 MEQ/15 ML PO ONE (15:27)
[2024-01-08] MEDS ORDERED: METOCLOPRAMIDE HCL INJECTION 10 MG/2 ML VIAL ONE (15:30)
[2024-01-08] MEDS ORDERED: ACETAMINOPHEN INJECTION 100 ML IVPB ONE (15:30)
[2024-01-08 15:35] LABS: MAGNESIUM 2.3 mg/dL (1.8-2.4)
[2024-01-08] MEDS: ACETAMINOPHEN 1000 MG/100 ML BAG IVPB ONE (15:36)
[2024-01-08] MEDS: METOCLOPRAMIDE HCL INJECTION 10 MG/2 ML VIAL IVPUSH ONE (15:50)
[2024-01-08] MEDS ORDERED: PIPERACILLIN/TAZOB 4.5 GM 4.5 GM/100 ML BAG IVPB ONE (16:54)
[2024-01-08] MEDS: PIPERACILLIN/TAZOB 4.5 GM 4.5 GM in DEXTROSE 5%-WATER 100 ML IVPB ONE (16:55)
[2024-01-08 17:05] LABS: EPI CELLS 6 /uL (0-25.1); EPI CELLS 7 /uL (0-25.1); HYALINE CASTS 0 /uL (0-3.1); HYALINE CASTS 1 /uL (0-3.1); PH,URINE 7.5 (5.0-8.0); URINE APPEARANCE CLEAR; URINE BACTERIA 2 /uL (0-1359); URINE BILIRUBIN NEGATIVE (NEGATIVE); URINE COLOR YELLOW; URINE GLUCOSE (UA) NEGATIVE (NEGATIVE); URINE KETONE NEGATIVE (NEGATIVE); URINE LEUK ESTERASE NEGATIVE (NEGATIVE); URINE NITRITE NEGATIVE (NEGATIVE); URINE PROTEIN 2+ (NEGATIVE); URINE RBC 177 /uL (0-23.9); URINE RBC 191 /uL (0-23.9); URINE UROBILINOGEN 0.2 mg/dL (0.2-1.0); URINE WBC 3 /uL (0-25.8); URINE WBC 5 /uL (0-25.8)
[2024-01-08] MEDS: LACTATED RINGERS SOLUTION 1000 ML INFUS.BAG IV ONE (17:13)
[2024-01-08] MEDS ORDERED: CLOPIDOGREL BISULFATE 75 MG TABLET (FP) ONE (17:46)
[2024-01-08] MEDS ORDERED: ASPIRIN 81 MG CHEWABLE TABLETS ONE (17:47)
[2024-01-08] MEDS: CLOPIDOGREL BISULFATE 75 MG TABLET (FP) PO SCH (18:04)
[2024-01-08] MEDS: ASPIRIN 81 MG CHEWABLE TABLETS PO SCH (18:04)
[2024-01-08] MEDS: VANCOMYCIN PREMIX 1.75 GM 1,750 MG/350 ML PIGGYBACK IVPB ONE (18:04)
[2024-01-08] MEDS: SODIUM CHLORIDE 0.9% 500 ML INFUS.BAG IV ONE (18:27)
[2024-01-08] MEDS ORDERED: SODIUM CHLORIDE 1,000 ML IV STA (18:52)
[2024-01-08] MEDS: CARVEDILOL 6.25 MG TABLET (FP) PO SCH (21:49)
[2024-01-08] MEDS: SODIUM CHLORIDE 1,000 ML IV SCH (21:49)
[2024-01-09 09:13] LABS: BASO % 0.6 % (0-2.0); EOS % 0.2 % (0-4.5); HEMATOCRIT 42.6 % (32.4-45.2); HEMOGLOBIN 13.9 GM/dL (10.7-15.3); LYMPH % 23.9 % (8-40); MCH 29.3 pg (25.7-33.7); MCHC 32.7 g/dl (32.0-36.0); MEAN CELL VOLUME 89.7 fl (80-96); MEAN PLT VOLUME 8.5 fl (7.5-11.1); MONO % 11.1 % (3.8-10.2); NEUT % 64.2 % (42.8-82.8); PLATELET COUNT 196 10^3/uL (134-434); RBC 4.75 M/mm3 (3.60-5.2); RDW 15.1 % (11.6-15.6); WHITE BLOOD COUNT 7.1 K/mm3 (4.0-10.0)
[2024-01-09 09:29] LABS: POTASSIUM 3.3 mmol/L (3.5-5.1)
[2024-01-09 09:31] LABS: ALBUMIN 3.7 g/dl (3.4-5.0); BLOOD UREA NITROGEN 8.6 mg/dL (7-18); CALCIUM 8.8 mg/dL (8.5-10.1); MAGNESIUM 2.3 mg/dL (1.8-2.4)
[2024-01-09 09:35] LABS: CREATININE 0.7 mg/dL (0.55-1.3); PHOSPHOROUS 3.1 mg/dL (2.5-4.9)
[2024-01-09 09:37] LABS: BILIRUBIN,TOTAL 0.7 mg/dL (0.2-1); TOT PROT 7.2 g/dl (6.4-8.2)
[2024-01-09] MEDS: ASPIRIN COATED 81 MG TABLET.EC PO SCH (10:10)
[2024-01-09] MEDS: amLODIPine BESYLATE 10 MG TABLET (FP) PO SCH ×2 (10:10→14:19)
[2024-01-09] MEDS: POTASSIUM CHLORIDE ORAL LIQUID 20 MEQ/15 ML PO ONE (10:29)
[2024-01-09] MEDS ORDERED: DOLUTEGRAVIR SODIUM 50 MG TABLET (NON-FORMULARY) PO SCH (14:00)
[2024-01-09] MEDS: PATIENT'S OWN MEDICATION (NON-FORMULARY) (Dolutegravir Sodium/Lamivudine [Dovato 50-300 Mg PO SCH (14:18)
[2024-01-09] MEDS: CLOPIDOGREL BISULFATE 75 MG TABLET (FP) PO SCH (14:19)
[2024-01-09] MEDS: lamiVUDine 150 MG TABLET PO SCH (14:42)
[2024-01-09] MEDS: DOLUTEGRAVIR SODIUM 50 MG TABLET (NON-FORMULARY) PO SCH (14:42)
[2024-01-09] MEDS: ATORVASTATIN CA 40 MG TABLET (FP) PO SCH (21:44)
[2024-01-09] MEDS: traZODone HCL 50 MG TABLET (FP) PO SCH (21:44)
[2024-01-09] MEDS: CARVEDILOL 6.25 MG TABLET (FP) PO SCH (21:44)
[2024-01-09] MEDS: SERTRALINE HCL 50 MG TABLET (FP) PO SCH (21:45)
[2024-01-10 00:42] LABS: METHADONE, UR NEGATIVE (NEGATIVE); OPIATES, URI NEGATIVE (NEGATIVE); PHENCYCLIDINE,URINE NEGATIVE (NEGATIVE); URINE BARBITURATES NEGATIVE (NEGATIVE); URINE BENZODIAZEPINES NEGATIVE (NEGATIVE)
[2024-01-10 00:47] LABS: COCAINE, UR NEGATIVE (NEGATIVE); URINE AMPHETAMINES NEGATIVE (NEGATIVE)
[2024-01-10 06:57] LABS: HEMATOCRIT 41.6 % (32.4-45.2); HEMOGLOBIN 13.9 GM/dL (10.7-15.3); MCH 29.8 pg (25.7-33.7); MCHC 33.3 g/dl (32.0-36.0); MEAN CELL VOLUME 89.6 fl (80-96); MEAN PLT VOLUME 8.5 fl (7.5-11.1); PLATELET COUNT 192 10^3/uL (134-434); RBC 4.64 M/mm3 (3.60-5.2); RDW 15.5 % (11.6-15.6); WHITE BLOOD COUNT 6.4 K/mm3 (4.0-10.0)
[2024-01-10 07:19] LABS: POTASSIUM 3.2 mmol/L (3.5-5.1)
[2024-01-10 07:27] LABS: ALBUMIN 3.7 g/dl (3.4-5.0); BLOOD UREA NITROGEN 12.6 mg/dL (7-18); CALCIUM 8.9 mg/dL (8.5-10.1); MAGNESIUM 2.4 mg/dL (1.8-2.4)
[2024-01-10 07:30] LABS: CREATININE 0.8 mg/dL (0.55-1.3)
[2024-01-10 07:31] LABS: PHOSPHOROUS 3.5 mg/dL (2.5-4.9)
[2024-01-10 07:32] LABS: BILIRUBIN,TOTAL 0.6 mg/dL (0.2-1); TOT PROT 7.2 g/dl (6.4-8.2)
[2024-01-10] MEDS: POTASSIUM CHLORIDE ORAL LIQUID 20 MEQ/15 ML PO ONE (08:12)
[2024-01-10] MEDS: CLOPIDOGREL BISULFATE 75 MG TABLET (FP) PO SCH (10:50)
[2024-01-10] MEDS: amLODIPine BESYLATE 10 MG TABLET (FP) PO SCH (10:50)
[2024-01-10] MEDS: CARVEDILOL 12.5 MG TABLET (FP) PO SCH (21:47)
[2024-01-10] MEDS: CARVEDILOL 12.5 MG TABLET (FP) PO ONE (23:44)
[2024-01-11] MEDS: SODIUM CHLORIDE 1,000 ML IV SCH ×2 (07:00→14:38)
[2024-01-11] MEDS: ALPRAZolam 1 MG TABLET PO ONE (10:14)
[2024-01-11] MEDS ORDERED: ALPRAZolam 0.25 MG TABLET PO PRN ×2 (10:15→15:36)
[2024-01-11] MEDS ORDERED: ALPRAZolam 0.25 MG TABLET PO ONE (11:45)
[2024-01-11 12:12] LABS: POTASSIUM 3.5 mmol/L (3.5-5.1)
[2024-01-11 12:14] LABS: CALCIUM 9.2 mg/dL (8.5-10.1)
[2024-01-11 12:15] LABS: ALBUMIN 3.6 g/dl (3.4-5.0); BLOOD UREA NITROGEN 14.9 mg/dL (7-18)
[2024-01-11 12:20] LABS: BILIRUBIN,TOTAL 0.6 mg/dL (0.2-1); TOT PROT 7.2 g/dl (6.4-8.2)
[2024-01-11] MEDS: SODIUM CHLORIDE 1,000 ML IV STA (14:39)
[2024-01-11] MEDS: CARVEDILOL 12.5 MG TABLET (FP) PO SCH (21:34)
[2024-01-11] MEDS: SERTRALINE HCL 50 MG TABLET (FP) PO SCH (21:34)
[2024-01-11] MEDS: traZODone HCL 50 MG TABLET (FP) PO SCH (21:36)
[2024-01-11] MEDS ORDERED: ATORVASTATIN CA 40 MG TABLET (FP) PO SCH (22:00)
[2024-01-11] MEDS ORDERED: traZODone HCL 50 MG TABLET (FP) PO PRN (22:09)
[2024-01-12] MEDS: DOLUTEGRAVIR SODIUM 50 MG TABLET (NON-FORMULARY) PO SCH (08:49)
[2024-01-12] MEDS: lamiVUDine 150 MG TABLET PO SCH (08:49)
[2024-01-12 08:56] LABS: POTASSIUM 3.6 mmol/L (3.5-5.1)
[2024-01-12 08:57] LABS: CALCIUM 8.5 mg/dL (8.5-10.1)
[2024-01-12 08:58] LABS: ALBUMIN 3.2 g/dl (3.4-5.0); BLOOD UREA NITROGEN 10.4 mg/dL (7-18); MAGNESIUM 1.8 mg/dL (1.8-2.4)
[2024-01-12 09:01] LABS: CREATININE 0.8 mg/dL (0.55-1.3); PHOSPHOROUS 4.6 mg/dL (2.5-4.9)
[2024-01-12 09:02] LABS: BILIRUBIN,TOTAL 0.5 mg/dL (0.2-1); TOT PROT 6.2 g/dl (6.4-8.2)
[2024-01-12] MEDS: CLOPIDOGREL BISULFATE 75 MG TABLET (FP) PO SCH (09:33)
[2024-01-12] MEDS: amLODIPine BESYLATE 10 MG TABLET (FP) PO SCH (09:33)
[2024-01-12] MEDS: ASPIRIN COATED 81 MG TABLET.EC PO SCH (09:33)
[2024-01-13 08:55] LABS: BASO % 0.7 % (0-2.0); EOS % 3.6 % (0-4.5); HEMATOCRIT 38.1 % (32.4-45.2); HEMOGLOBIN 12.4 GM/dL (10.7-15.3); LYMPH % 31.7 % (8-40); MCH 29.5 pg (25.7-33.7); MCHC 32.7 g/dl (32.0-36.0); MEAN CELL VOLUME 90.3 fl (80-96); MEAN PLT VOLUME 8.9 fl (7.5-11.1); PLATELET COUNT 168 10^3/uL (134-434); RBC 4.22 M/mm3 (3.60-5.2); RDW 14.9 % (11.6-15.6); WHITE BLOOD COUNT 5.1 K/mm3 (4.0-10.0)
[2024-01-13 09:33] LABS: ALBUMIN 3.6 g/dl (3.4-5.0); BLOOD UREA NITROGEN 11.7 mg/dL (7-18)
[2024-01-13 09:38] LABS: BILIRUBIN,TOTAL 0.5 mg/dL (0.2-1); TOT PROT 6.8 g/dl (6.4-8.2)
[2024-01-13] MEDS: SERTRALINE HCL 50 MG TABLET (FP) PO SCH (10:05)
[2024-01-13 14:20] VITALS: RESP 18
[2024-01-14 10:04] LABS: BASO % 0.9 % (0-2.0); EOS % 2.3 % (0-4.5); HEMATOCRIT 37.7 % (32.4-45.2); HEMOGLOBIN 12.4 GM/dL (10.7-15.3); MCH 29.7 pg (25.7-33.7); MEAN CELL VOLUME 89.9 fl (80-96); MEAN PLT VOLUME 9.1 fl (7.5-11.1); MONO % 10.7 % (3.8-10.2); NEUT % 56.1 % (42.8-82.8); PLATELET COUNT 164 10^3/uL (134-434); RBC 4.19 M/mm3 (3.60-5.2); RDW 15.1 % (11.6-15.6)
[2024-01-14 10:25] LABS: POTASSIUM 3.6 mmol/L (3.5-5.1)
[2024-01-14 10:51] LABS: BLOOD UREA NITROGEN 8.8 mg/dL (7-18)
[2024-01-14 10:52] LABS: CALCIUM 9.2 mg/dL (8.5-10.1)
[2024-01-14 10:53] LABS: ALBUMIN 3.7 g/dl (3.4-5.0)
[2024-01-14 10:55] LABS: CREATININE 0.9 mg/dL (0.55-1.3)
[2024-01-14 10:57] LABS: BILIRUBIN,TOTAL 0.6 mg/dL (0.2-1); TOT PROT 7.1 g/dl (6.4-8.2)
[2024-01-14 17:27] VITALS: BP 148/72; PULSE 97; TEMP 98.6
== END 2024-01-14 21:00 | disposition home or self-care (01) | DRG 351 ==
LOC: JER 13:19 → JERBED 16:45 → J4W 21:34 → OBSVTOIN 01-09 10:39 → J6S 01-11 12:26
PROVIDERS: ADMIT Internal Medicine; ATTEND Nurse Practitioner Family
DX: M62.82 Rhabdomyolysis (principal); Z21 Asymptomatic human immunodeficiency virus [HIV] infection status; F41.8 Other specified anxiety disorders; I10 Essential (primary) hypertension; E78.5 Hyperlipidemia, unspecified; R41.82 Altered mental status, unspecified; H53.9 Unspecified visual disturbance; Z86.73 Personal history of transient ischemic attack (TIA), and cerebral infarction without residual deficits
CPT/HCPCS: 0241U-QW; 36415; 70450-TC; 70496-TC; 70498-TC; 70551-TC; 71045-TC-FY; 80048; 80053; 80061; 80177; 80307; 81003; 82550; 82553; 82962; 83036; 83735; 84100; 84439; 84443; 84481; 84484; 85025; 85027; 85610; 85730; 86850; 86900; 86901; 87040; 87086; 93005; 93010; 93306-TC; 93880-TC; 95816; 97116-GP; 97163-GP; 99285-25; G0378; J0131; J3370

== ENCOUNTER 2024-05-19 14:32 | Observation (INO) | payer OTHER ==
[2024-05-19 15:54] LABS: BASO % 0.7 % (0-2.0); EOS % 1.8 % (0-4.5); EPI CELLS 12 /uL (0-25.1); HEMATOCRIT 37.2 % (32.4-45.2); HEMOGLOBIN 12.6 GM/dL (10.7-15.3); HYALINE CASTS 1 /uL (0-3.1); MCH 30.1 pg (25.7-33.7); MCHC 33.8 g/dl (32.0-36.0); MEAN CELL VOLUME 89.2 fl (80-96); MEAN PLT VOLUME 8.1 fl (7.5-11.1); MONO % 8.9 % (3.8-10.2); NEUT % 51.6 % (42.8-82.8); PH,URINE 7.5 (5.0-8.0); PLATELET COUNT 162 10^3/uL (134-434); RBC 4.16 M/mm3 (3.60-5.2); RDW 14.7 % (11.6-15.6); URINE APPEARANCE CLOUDY; URINE BACTERIA 34 /uL (0-1359); URINE BILIRUBIN NEGATIVE (NEGATIVE); URINE COLOR YELLOW; URINE GLUCOSE (UA) NEGATIVE (NEGATIVE); URINE KETONE NEGATIVE (NEGATIVE); URINE LEUK ESTERASE TRACE (NEGATIVE); URINE NITRITE NEGATIVE (NEGATIVE); URINE PROTEIN TRACE (NEGATIVE); URINE RBC 48 /uL (0-23.9); URINE WBC 13 /uL (0-25.8); WHITE BLOOD COUNT 3.9 K/mm3 (4.0-10.0)
[2024-05-19 16:00] LABS: INR 1.13 (0.83-1.09); PROTHROMBIN TIME (PATIENT) 12.7 SEC (9.7-13.0)
[2024-05-19 16:03] LABS: ACTIVATED PTT 31.8 SECONDS (25.2-36.5)
[2024-05-19 16:15] LABS: CHLORIDE 109 mmol/L (98-107); POTASSIUM 3.6 mmol/L (3.5-5.1); SODIUM 141 mmol/L (136-145)
[2024-05-19 16:17] LABS: ALBUMIN 3.9 g/dl (3.4-5.0); ANION GAP 7 mmol/L (4-13); CALCIUM 9.1 mg/dL (8.5-10.1); CO2 25 mmol/L (21-32)
[2024-05-19 16:18] LABS: BLOOD UREA NITROGEN 14.1 mg/dL (7-18); GLUCOSE,RANDOM 92 mg/dL (74-106)
[2024-05-19 16:20] LABS: SGPT/ALT 25 U/L (13-61)
[2024-05-19 16:21] LABS: SGOT/AST 16 U/L (15-37)
[2024-05-19 16:22] LABS: CHOLESTEROL 159 mg/dL (50-200); TOT PROT 6.7 g/dl (6.4-8.2)
[2024-05-19 16:23] LABS: BILIRUBIN,TOTAL 0.8 mg/dL (0.2-1); HDL CHOLESTEROL 74 mg/dL (40-60); LDL CHOLESTEROL (ONLY SJRH) 66 mg/dL (5-100)
[2024-05-19 16:24] LABS: ALK PHOS 99 U/L (45-117)
[2024-05-19] MEDS ORDERED: NAPROXEN 500 MG TABLET PO PRN (22:19)
[2024-05-19] MEDS ORDERED: traZODone HCL 50 MG TABLET (FP) PO PRN (22:19)
[2024-05-19] MEDS ORDERED: SERTRALINE HCL 50 MG TABLET (FP) ONE (22:47)
[2024-05-19] MEDS ORDERED: ATORVASTATIN CA 40 MG TABLET (FP) ONE (22:47)
[2024-05-19] MEDS: SERTRALINE HCL 50 MG TABLET (FP) PO SCH (22:51)
[2024-05-19] MEDS: ATORVASTATIN CA 40 MG TABLET (FP) PO SCH (22:51)
[2024-05-19] MEDS: OXcarbazepine 300 MG TABLET (UD) PO SCH (22:57)
[2024-05-20 04:01] VITALS: BMI 33.7
[2024-05-20 08:27] LABS: BASO % 0.9 % (0-2.0); EOS % 2.4 % (0-4.5); HEMATOCRIT 38.5 % (32.4-45.2); LYMPH % 39.3 % (8-40); MCH 30.2 pg (25.7-33.7); MCHC 33.9 g/dl (32.0-36.0); MEAN CELL VOLUME 89.2 fl (80-96); MEAN PLT VOLUME 8.3 fl (7.5-11.1); MONO % 10.1 % (3.8-10.2); NEUT % 47.3 % (42.8-82.8); PLATELET COUNT 163 10^3/uL (134-434); RBC 4.31 M/mm3 (3.60-5.2); RDW 14.9 % (11.6-15.6); WHITE BLOOD COUNT 4.1 K/mm3 (4.0-10.0)
[2024-05-20 08:45] LABS: POTASSIUM 3.5 mmol/L (3.5-5.1)
[2024-05-20 08:50] LABS: CALCIUM 8.4 mg/dL (8.5-10.1)
[2024-05-20 08:51] LABS: ALBUMIN 3.6 g/dl (3.4-5.0); BLOOD UREA NITROGEN 13.3 mg/dL (7-18); MAGNESIUM 2.1 mg/dL (1.8-2.4)
[2024-05-20 08:54] LABS: CREATININE 0.8 mg/dL (0.55-1.3); PHOSPHOROUS 3.8 mg/dL (2.5-4.9)
[2024-05-20 08:55] LABS: BILIRUBIN,TOTAL 0.7 mg/dL (0.2-1); TOT PROT 6.8 g/dl (6.4-8.2)
[2024-05-20 09:09] VITALS: RESP 18
[2024-05-20] MEDS: MULTIVITAMINS THER W-MINERALS COMBO TABLET (FP) PO SCH (09:10)
[2024-05-20] MEDS: CARVEDILOL 6.25 MG TABLET (FP) PO SCH (09:10)
[2024-05-20] MEDS: CLOPIDOGREL BISULFATE 75 MG TABLET (FP) PO SCH (09:10)
[2024-05-20] MEDS: CALCIUM 500MG/VIT-D 200 UNITS COMBO TABLET (FP) PO SCH (09:10)
[2024-05-20] MEDS: ENOXAPARIN NA (PORCINE) 40 MG/0.4 ML DISP.SYRIN SQ SCH (09:10)
[2024-05-20 21:18] VITALS: BP 141/90; PULSE 86; TEMP 97.9
[2024-05-20] MEDS: lamiVUDine 150 MG TABLET PO SCH (21:53)
[2024-05-20] MEDS: DOLUTEGRAVIR SODIUM 50 MG TABLET (NON-FORMULARY) PO SCH (21:53)
[2024-05-20] MEDS ORDERED: PATIENT'S OWN MEDICATION (NON-FORMULARY) (Dolutegravir Sodium/Lamivudine [Dovato 50-300 Mg PO SCH (22:00)
[2024-05-21] MEDS ORDERED: LOSARTAN POTASSIUM 25 MG TABLET PO SCH (10:00)
== END 2024-05-20 22:05 | disposition home or self-care (01) ==
LOC: JER 14:32 → JERBED 17:55 → J4W 05-20 03:49
PROVIDERS: ADMIT Internal Medicine; ATTEND Internal Medicine
PROC: 3E023GC Introduction of Other Therapeutic Substance into Muscle, Percutaneous Approach (ICD-10-PCS; principal; 2024-05-19)
DX: G45.9 Transient cerebral ischemic attack, unspecified (principal); B20 Human immunodeficiency virus [HIV] disease; R73.03 Prediabetes; F41.8 Other specified anxiety disorders
CPT/HCPCS: 36415; 70450-TC; 70551-TC; 71045-TC-FY; 80053; 80061; 81003; 82550; 82962; 83036; 83735; 84100; 84443; 84484; 85025; 85610; 85730; 86850; 86900; 86901; 93005; 93010; 99285-25; G0378

== ENCOUNTER 2024-11-02 22:33 | Inpatient (IN) | payer OTHER ==
[2024-11-02] MEDS ORDERED: LORazepam 2 MG/ML SDV VIAL ONE (23:14)
[2024-11-02 23:19] LABS: BASO % 0.5 % (0-2.0); EOS % 2.1 % (0-4.5); HEMATOCRIT 42.4 % (32.4-45.2); HEMOGLOBIN 13.7 GM/dL (10.7-15.3); LYMPH % 29.5 % (8-40); MCH 29.3 pg (25.7-33.7); MCHC 32.3 g/dl (32.0-36.0); MEAN CELL VOLUME 90.6 fl (80-96); MEAN PLT VOLUME 8.6 fl (7.5-11.1); MONO % 8.6 % (3.8-10.2); NEUT % 59.3 % (42.8-82.8); PLATELET COUNT 174 10^3/uL (134-434); RBC 4.69 M/mm3 (3.60-5.2); RDW 14.8 % (11.6-15.6); WHITE BLOOD COUNT 5.3 K/mm3 (4.0-10.0)
[2024-11-02] MEDS ORDERED: levETIRAcetam 500 MG/5 ML INJECTION VIAL IVPB ONE (23:27)
[2024-11-02 23:33] LABS: INR 1.03 (0.83-1.09); PROTHROMBIN TIME (PATIENT) 11.8 SEC (9.7-13.0)
[2024-11-02] MEDS: levETIRAcetam 500 MG/5 ML INJECTION VIAL IVPB ONE (23:34)
[2024-11-02 23:36] LABS: ACTIVATED PTT 32.7 SECONDS (25.2-36.5)
[2024-11-02 23:47] LABS: CHLORIDE 98 mmol/L (98-107); POTASSIUM 3.5 mmol/L (3.5-5.1); SODIUM 137 mmol/L (136-145)
[2024-11-02 23:49] LABS: ANION GAP 9 mmol/L (4-13); CALCIUM 9.2 mg/dL (8.5-10.1); CO2 30 mmol/L (21-32)
[2024-11-02 23:50] LABS: ALBUMIN 4.2 g/dl (3.4-5.0)
[2024-11-02 23:53] LABS: CREATININE 1.1 mg/dL (0.55-1.3); SGOT/AST 32 U/L (15-37); SGPT/ALT 25 U/L (13-61)
[2024-11-02 23:54] LABS: TOT PROT 7.5 g/dl (6.4-8.2)
[2024-11-02 23:55] LABS: LDL CHOLESTEROL (ONLY SJRH) 152 mg/dL (5-100)
[2024-11-02 23:56] LABS: BILIRUBIN,TOTAL 0.4 mg/dL (0.2-1)
[2024-11-02 23:57] LABS: ALK PHOS 105 U/L (45-117); HDL CHOLESTEROL 78 mg/dL (40-60)
[2024-11-02 23:58] LABS: CHOLESTEROL 269 mg/dL (50-200)
[2024-11-03 00:04] LABS: GLUCOSE,RANDOM 145 mg/dL (74-106)
[2024-11-03 00:33] VITALS: BMI 34.9
[2024-11-03] MEDS ORDERED: LORazepam 2 MG/ML SDV VIAL ONE (05:25)
[2024-11-03] MEDS: ASPIRIN 325 MG TABLET PO ONE (06:50)
[2024-11-03] MEDS: ATORVASTATIN CA 80 MG TABLET (FP) PO ONE (06:51)
[2024-11-03] MEDS: INSULIN ASPART SLIDING SCALE (NOVOLOG) 1 VIAL SQ SCH (06:53)
[2024-11-03 08:40] LABS: HEMATOCRIT 39.5 % (32.4-45.2); HEMOGLOBIN 13.2 GM/dL (10.7-15.3); MCH 29.9 pg (25.7-33.7); MCHC 33.4 g/dl (32.0-36.0); MEAN CELL VOLUME 89.5 fl (80-96); MEAN PLT VOLUME 8.7 fl (7.5-11.1); PLATELET COUNT 177 10^3/uL (134-434); RBC 4.41 M/mm3 (3.60-5.2); RDW 14.5 % (11.6-15.6); WHITE BLOOD COUNT 5.8 K/mm3 (4.0-10.0)
[2024-11-03 08:55] LABS: POTASSIUM 3.4 mmol/L (3.5-5.1)
[2024-11-03 08:59] LABS: BLOOD UREA NITROGEN 8.8 mg/dL (7-18); CALCIUM 9.4 mg/dL (8.5-10.1)
[2024-11-03 09:00] LABS: ALBUMIN 4.2 g/dl (3.4-5.0)
[2024-11-03 09:03] LABS: CREATININE 0.9 mg/dL (0.55-1.3)
[2024-11-03 09:04] LABS: BILIRUBIN,TOTAL 0.4 mg/dL (0.2-1); TOT PROT 7.6 g/dl (6.4-8.2)
[2024-11-03] MEDS: levETIRAcetam 500 MG/5 ML INJECTION VIAL IVPB SCH (10:51)
[2024-11-03] MEDS: LORazepam 2 MG/ML SDV VIAL IVPUSH PRN (19:49)
[2024-11-03] MEDS ORDERED: ATORVASTATIN CA 80 MG TABLET (FP) PO SCH (22:00)
[2024-11-04 08:17] LABS: BASO % 0.7 % (0-2.0); HEMATOCRIT 42.9 % (32.4-45.2); HEMOGLOBIN 14.1 GM/dL (10.7-15.3); LYMPH % 47.6 % (8-40); MCH 29.6 pg (25.7-33.7); MCHC 32.9 g/dl (32.0-36.0); MEAN PLT VOLUME 8.8 fl (7.5-11.1); MONO % 10.4 % (3.8-10.2); NEUT % 40.3 % (42.8-82.8); PLATELET COUNT 199 10^3/uL (134-434); RBC 4.77 M/mm3 (3.60-5.2); RDW 14.8 % (11.6-15.6); WHITE BLOOD COUNT 4.8 K/mm3 (4.0-10.0)
[2024-11-04 08:22] LABS: POTASSIUM 3.4 mmol/L (3.5-5.1)
[2024-11-04 08:33] LABS: ALBUMIN 4.1 g/dl (3.4-5.0); BLOOD UREA NITROGEN 11.1 mg/dL (7-18); CALCIUM 9.4 mg/dL (8.5-10.1)
[2024-11-04 08:34] LABS: BILIRUBIN,TOTAL 0.5 mg/dL (0.2-1); MAGNESIUM 2.3 mg/dL (1.8-2.4)
[2024-11-04 08:36] LABS: TOT PROT 7.5 g/dl (6.4-8.2)
[2024-11-05 09:01] LABS: BASO % 0.9 % (0-2.0); EOS % 1.5 % (0-4.5); HEMATOCRIT 42.5 % (32.4-45.2); HEMOGLOBIN 13.7 GM/dL (10.7-15.3); LYMPH % 43.5 % (8-40); MCH 29.2 pg (25.7-33.7); MCHC 32.2 g/dl (32.0-36.0); MEAN CELL VOLUME 90.6 fl (80-96); MEAN PLT VOLUME 8.6 fl (7.5-11.1); MONO % 11.5 % (3.8-10.2); NEUT % 42.6 % (42.8-82.8); PLATELET COUNT 196 10^3/uL (134-434); RBC 4.69 M/mm3 (3.60-5.2); RDW 15.1 % (11.6-15.6); WHITE BLOOD COUNT 4.6 K/mm3 (4.0-10.0)
[2024-11-05 09:14] LABS: POTASSIUM 3.3 mmol/L (3.5-5.1)
[2024-11-05 09:17] LABS: CALCIUM 9.6 mg/dL (8.5-10.1)
[2024-11-05 09:21] LABS: CREATININE 0.9 mg/dL (0.55-1.3)
[2024-11-06 09:18] LABS: EOS % 2.8 % (0-4.5); HEMATOCRIT 40.5 % (32.4-45.2); HEMOGLOBIN 13.4 GM/dL (10.7-15.3); LYMPH % 42.4 % (8-40); MCH 29.6 pg (25.7-33.7); MCHC 33.1 g/dl (32.0-36.0); MEAN CELL VOLUME 89.4 fl (80-96); MEAN PLT VOLUME 8.6 fl (7.5-11.1); MONO % 10.8 % (3.8-10.2); PLATELET COUNT 169 10^3/uL (134-434); RBC 4.54 M/mm3 (3.60-5.2); RDW 15.2 % (11.6-15.6); WHITE BLOOD COUNT 3.7 K/mm3 (4.0-10.0)
[2024-11-06 09:52] LABS: POTASSIUM 3.4 mmol/L (3.5-5.1)
[2024-11-06 09:56] LABS: ALBUMIN 3.6 g/dl (3.4-5.0); CALCIUM 9.4 mg/dL (8.5-10.1)
[2024-11-06 09:59] LABS: BILIRUBIN,TOTAL 0.3 mg/dL (0.2-1)
[2024-11-06 10:00] LABS: TOT PROT 6.8 g/dl (6.4-8.2)
[2024-11-06 10:10] LABS: BLOOD UREA NITROGEN 17.9 mg/dL (7-18)
[2024-11-06] MEDS: POTASSIUM CHLORIDE TABS 20 MEQ TABLET.ER (FP) PO SCH (11:28)
[2024-11-06 13:28] VITALS: PULSE 96
[2024-11-06 14:57] VITALS: BP 132/64; RESP 18; TEMP 98.8
== END 2024-11-06 15:30 | disposition home or self-care (01) | DRG 53 ==
LOC: JER 22:33 → JERBED 11-03 00:11 → J4S 11-03 06:02
PROVIDERS: ADMIT Internal Medicine; ATTEND Registered Nurse
DX: R56.9 Unspecified convulsions (principal); I10 Essential (primary) hypertension; E78.5 Hyperlipidemia, unspecified; R73.03 Prediabetes; Z21 Asymptomatic human immunodeficiency virus [HIV] infection status; F41.8 Other specified anxiety disorders; E04.1 Nontoxic single thyroid nodule; M62.82 Rhabdomyolysis; G47.00 Insomnia, unspecified; R47.01 Aphasia; Z86.73 Personal history of transient ischemic attack (TIA), and cerebral infarction without residual deficits
CPT/HCPCS: 36415; 70450-TC; 70496-TC; 70498-TC; 70551-TC; 80048; 80053; 80061; 82550; 82553; 82962; 83036; 83735; 84146; 84443; 84484; 85025; 85027; 85610; 85730; 86359; 86360; 86850; 86900; 86901; 93005; 93010; 93306-TC; 97116-GP; 97161-GP; 99285-25

== ENCOUNTER 2025-06-03 20:12 | Observation (INO) | payer OTHER ==
[2025-06-03 20:20] VITALS: BMI 32.9
[2025-06-03 22:17] LABS: ABSOLUTE IMMATURE GRANULOCYTES 0.00 x10^3/uL (0.0-0.031); BASOPHILS # 0.03 x10^3/uL (0.01-0.08); EOSINOPHIL % 3.1 % (0.7-5.8); EOSINOPHILS # 0.10 x10^3/uL (0.04-0.36); MCHC 35.8 g/dl (32.2-35.5); MEAN CELL VOLUME 83.9 fl (79.4-94.8); MEAN PLT VOLUME 9.1 fl (9.4-12.3); MONOCYTE # 0.47 x10^3/uL (0.24-0.86); MONOCYTE % 14.5 % (4.7-12.5); RDW 12.2 % (12.4-16.4)
[2025-06-03 22:40] LABS: CO2 29 mmol/L (21-32); GLUCOSE,RANDOM 97 mg/dL (74-106)
[2025-06-03 22:43] LABS: CREATININE 1.0 mg/dL (0.55-1.3); SGPT/ALT 32 U/L (13-61)
[2025-06-03 22:44] LABS: SGOT/AST 29 U/L (15-37)
[2025-06-03 22:45] LABS: TOT PROT 6.8 g/dl (6.4-8.2)
[2025-06-03 22:46] LABS: ALK PHOS 115 U/L (45-117)
[2025-06-03] MEDS ORDERED: POTASSIUM CHLORIDE ORAL LIQUID 20 MEQ/15 ML ONE (23:35)
[2025-06-03] MEDS: POTASSIUM CHLORIDE ORAL LIQUID 20 MEQ/15 ML PO ONE (23:40)
[2025-06-04 00:33] LABS: HCV DIAGNOSTIC IN-HOUSE W/RFLX NON-REACTIVE (NONREACTIVE)
[2025-06-04] MEDS: SODIUM CHLORIDE 1,000 ML IV SCH (02:39)
[2025-06-04] MEDS ORDERED: POTASSIUM CHLORIDE ORAL LIQUID 20 MEQ/15 ML ONE ×2 (03:51→09:03)
[2025-06-04] MEDS: POTASSIUM CHLORIDE ORAL LIQUID 20 MEQ/15 ML PO ONE ×2 (03:53→09:11)
[2025-06-04 04:14] LABS: EPI CELLS 5 /uL (0-25.1); HYALINE CASTS 0 /uL (0-3.1); URINE APPEARANCE CLEAR; URINE BACTERIA 22 /uL (0-1359); URINE BILIRUBIN NEGATIVE (NEGATIVE); URINE COLOR YELLOW; URINE GLUCOSE (UA) NEGATIVE (NEGATIVE); URINE KETONE NEGATIVE (NEGATIVE); URINE LEUK ESTERASE TRACE (NEGATIVE); URINE NITRITE NEGATIVE (NEGATIVE); URINE PROTEIN NEGATIVE (NEGATIVE); URINE RBC 41 /uL (0-23.9); URINE UROBILINOGEN 1.0 mg/dL (0.2-1.0); URINE WBC 13 /uL (0-25.8)
[2025-06-04 04:31] LABS: URINE UREA NITROGEN 410.0 mg/dL (350-1000)
[2025-06-04 07:27] LABS: CO2 28.0 mmol/L (21-32); GLUCOSE,RANDOM 93.0 mg/dL (74-106)
[2025-06-04 07:29] LABS: SGOT/AST 26.0 U/L (15-37); SGPT/ALT 29.0 U/L (13-61)
[2025-06-04 07:31] LABS: CREATININE 0.9 mg/dL (0.55-1.3)
[2025-06-04 07:32] LABS: TOT PROT 6.2 g/dl (6.4-8.2)
[2025-06-04 07:33] LABS: ALK PHOS 109.0 U/L (45-117)
[2025-06-04 07:44] LABS: MCHC 35.6 g/dl (32.2-35.5); MEAN CELL VOLUME 84.3 fl (79.4-94.8); MEAN PLT VOLUME 9.6 fl (9.4-12.3); RDW 12.2 % (12.4-16.4)
[2025-06-04] MEDS ORDERED: ASPIRIN COATED 81 MG TABLET.EC ONE (09:02)
[2025-06-04] MEDS ORDERED: levETIRAcetam 500 MG TABLET (FP) PO ONE (09:03)
[2025-06-04] MEDS ORDERED: CLOPIDOGREL BISULFATE 75 MG TABLET (FP) ONE (09:03)
[2025-06-04] MEDS ORDERED: ENOXAPARIN NA (PORCINE) 40 MG/0.4 ML DISP.SYRIN SQ ONE (09:03)
[2025-06-04] MEDS ORDERED: LIDOCAINE 5% TOPICAL PATCH ONE (09:04)
[2025-06-04] MEDS: levETIRAcetam 500 MG TABLET (FP) PO SCH (09:11)
[2025-06-04] MEDS: CLOPIDOGREL BISULFATE 75 MG TABLET (FP) PO SCH (09:12)
[2025-06-04] MEDS: ASPIRIN COATED 81 MG TABLET.EC PO SCH (09:13)
[2025-06-04] MEDS: MULTIVITAMINS THER W-MINERALS COMBO TABLET (FP) PO SCH (09:13)
[2025-06-04] MEDS: OXcarbazepine 150 MG TABLET (UD) PO SCH (09:21)
[2025-06-04] MEDS: LIDOCAINE 5% TOPICAL PATCH TP SCH (09:28)
[2025-06-04] MEDS: ENOXAPARIN NA (PORCINE) 40 MG/0.4 ML DISP.SYRIN SQ SCH (09:28)
[2025-06-04 11:36] LABS: HIV INTERPRETATION PRESUMPTIVE POSITIVE (NEGATIVE)
[2025-06-04] MEDS: SODIUM CHLORIDE 0.9%/KCL 20 MEQ/1,000 ML INFUS.BAG IV SCH (15:58)
[2025-06-04 16:54] LABS: CO2 30.0 mmol/L (21-32)
[2025-06-04 16:56] LABS: GLUCOSE,RANDOM 110.0 mg/dL (74-106)
[2025-06-04 16:58] LABS: CREATININE 0.9 mg/dL (0.55-1.3)
[2025-06-04] MEDS: traZODone HCL 50 MG TABLET (FP) PO PRN (21:54)
[2025-06-04] MEDS: ATORVASTATIN CA 40 MG TABLET (FP) PO SCH (21:57)
[2025-06-04] MEDS ORDERED: PATIENT'S OWN MEDICATION (NON-FORMULARY) (Dolutegravir Sodium/Lamivudine [Dovato 50-300 Mg PO SCH (22:00)
[2025-06-04] MEDS: LIDOCAINE PATCH REMOVAL MC SCH (23:03)
[2025-06-05 07:46] LABS: CO2 29.0 mmol/L (21-32); GLUCOSE,RANDOM 101.0 mg/dL (74-106)
[2025-06-05 07:49] LABS: CREATININE 0.8 mg/dL (0.55-1.3); SGOT/AST 20.0 U/L (15-37); SGPT/ALT 28.0 U/L (13-61)
[2025-06-05 07:51] LABS: TOT PROT 5.9 g/dl (6.4-8.2)
[2025-06-05 07:52] LABS: ALK PHOS 119.0 U/L (45-117)
[2025-06-05 08:16] LABS: MCHC 33.7 g/dl (32.2-35.5); MEAN CELL VOLUME 87.2 fl (79.4-94.8); MEAN PLT VOLUME 9.7 fl (9.4-12.3); RDW 13.2 % (12.4-16.4)
[2025-06-05] MEDS: ACETAMINOPHEN 325 MG TABLET (FP) PO PRN (18:40)
[2025-06-05 20:42] VITALS: PULSE 92
[2025-06-05] MEDS: SERTRALINE HCL 50 MG TABLET (FP) PO SCH (22:18)
[2025-06-05] MEDS: SERTRALINE HCL 50 MG TABLET (FP) PO ONE (23:32)
[2025-06-06 07:20] LABS: MCHC 33.6 g/dl (32.2-35.5); MEAN CELL VOLUME 88.3 fl (79.4-94.8); MEAN PLT VOLUME 9.5 fl (9.4-12.3); RDW 13.8 % (12.4-16.4)
[2025-06-06 07:41] LABS: CO2 28.0 mmol/L (21-32); GLUCOSE,RANDOM 107.0 mg/dL (74-106)
[2025-06-06 07:45] LABS: CREATININE 0.7 mg/dL (0.55-1.3)
[2025-06-06 11:13] VITALS: BP 108/56; RESP 16; TEMP 98.1
[2025-06-06] MEDS ORDERED: SERTRALINE HCL 50 MG TABLET (FP) PO SCH (22:00)
== END 2025-06-06 13:03 | disposition home or self-care (01) ==
LOC: JER 20:12 → INTOOBSV 06-04 00:24 → UNDOADMOB 06-04 00:24 → JERBED 06-04 00:24 → J4S 06-04 14:48
PROVIDERS: ADMIT Internal Medicine; ATTEND Student in an Organized Health Care Education/Training Program
PROC: 3E0337Z Introduction of Electrolytic and Water Balance Substance into Peripheral Vein, Percutaneous Approach (ICD-10-PCS; principal; 2025-06-04)
DX: E87.1 Hypo-osmolality and hyponatremia (principal); E78.5 Hyperlipidemia, unspecified; B20 Human immunodeficiency virus [HIV] disease; I10 Essential (primary) hypertension; A53.0 Latent syphilis, unspecified as early or late; Z86.73 Personal history of transient ischemic attack (TIA), and cerebral infarction without residual deficits
CPT/HCPCS: 36415; 80048; 80053; 80177; 80183; 81003; 82436; 82570; 83735; 83930; 83935; 84100; 84133; 84300; 84540; 85025; 85027; 86593; 86780; 86803; 87389; 93005; 93010; 99285-25; G0378

== ENCOUNTER 2025-09-01 17:03 | Inpatient (IN) | payer OTHER ==
[2025-09-01 18:27] LABS: ABSOLUTE IMMATURE GRANULOCYTES 0.02 x10^3/uL (0.0-0.031); BASOPHILS # 0.02 x10^3/uL (0.01-0.08); EOSINOPHIL % 1.6 % (0.7-5.8); EOSINOPHILS # 0.08 x10^3/uL (0.04-0.36); MCHC 33.0 g/dl (32.2-35.5); MEAN CELL VOLUME 90.8 fl (79.4-94.8); MEAN PLT VOLUME 10.1 fl (9.4-12.3); MONOCYTE # 0.37 x10^3/uL (0.24-0.86); MONOCYTE % 7.4 % (4.7-12.5); RDW 13.6 % (12.4-16.4)
[2025-09-01 18:37] LABS: INR 1.12 (0.83-1.09); PROTHROMBIN TIME (PATIENT) 12.2 SEC (9.7-13.0)
[2025-09-01] MEDS ORDERED: MIDAZOLAM HCL 2 MG/2 ML SINGLE DOSE VIAL ONE ×2 (18:37→21:54)
[2025-09-01 18:40] LABS: ACTIVATED PTT 31.5 SECONDS (25.2-36.5)
[2025-09-01 19:02] LABS: GLUCOSE,RANDOM 99 mg/dL (74-106)
[2025-09-01 19:03] LABS: TOT PROT 7.1 g/dl (6.4-8.2)
[2025-09-01 19:04] LABS: CO2 25 mmol/L (21-32)
[2025-09-01 19:05] LABS: ALK PHOS 90 U/L (40-150)
[2025-09-01 19:08] LABS: CREATININE 0.98 mg/dL (0.55-1.3); LDL CHOLESTEROL (ONLY SJRH) 85 mg/dL (5-100); SGOT/AST 21 U/L (5-34); SGPT/ALT 15 U/L (0-55)
[2025-09-01] MEDS: MIDAZOLAM HCL 2 MG/2 ML SINGLE DOSE VIAL IVPUSH ONE ×2 (19:24→22:07)
[2025-09-01] MEDS ORDERED: levETIRAcetam 500 MG/5 ML INJECTION VIAL IVPB ONE (19:45)
[2025-09-01] MEDS: levETIRAcetam 500 MG/5 ML INJECTION VIAL IVPB ONE (19:50)
[2025-09-01 21:57] LABS: EPI CELLS 1 /uL (0-25.1); HYALINE CASTS 0 /uL (0-3.1); URINE APPEARANCE CLEAR; URINE BACTERIA 22 /uL (0-1359); URINE BILIRUBIN NEGATIVE (NEGATIVE); URINE COLOR YELLOW; URINE GLUCOSE (UA) NEGATIVE (NEGATIVE); URINE KETONE NEGATIVE (NEGATIVE); URINE LEUK ESTERASE NEGATIVE (NEGATIVE); URINE NITRITE NEGATIVE (NEGATIVE); URINE PROTEIN NEGATIVE (NEGATIVE); URINE RBC 42 /uL (0-23.9); URINE UROBILINOGEN 0.2 mg/dL (0.2-1.0); URINE WBC 1 /uL (0-25.8)
[2025-09-01 22:10] LABS: COCAINE, UR NEGATIVE (NEGATIVE)
[2025-09-01 22:11] LABS: METHADONE, UR NEGATIVE (NEGATIVE); OPIATES, URI NEGATIVE (NEGATIVE); PHENCYCLIDINE,URINE NEGATIVE (NEGATIVE); URINE AMPHETAMINES NEGATIVE (NEGATIVE); URINE BARBITURATES NEGATIVE (NEGATIVE); URINE BENZODIAZEPINES POSITIVE (NEGATIVE)
[2025-09-01] MEDS: LORazepam 2 MG/ML SDV VIAL IVPUSH ONE (22:23)
[2025-09-01] MEDS ORDERED: diazePAM CARPU-JECT 10 MG/2 ML DISP.SYRIN ONE (22:44)
[2025-09-01] MEDS: diazePAM CARPU-JECT 10 MG/2 ML DISP.SYRIN IVPUSH PRN (23:09)
[2025-09-02] MEDS: diazePAM CARPU-JECT 10 MG/2 ML DISP.SYRIN IVPUSH ONE (00:08)
[2025-09-02] MEDS ORDERED: LABETALOL HCL 20 MG/4 ML VIAL IVPUSH PRN (01:37)
[2025-09-02 08:07] LABS: ABSOLUTE IMMATURE GRANULOCYTES 0.04 x10^3/uL (0.0-0.031); BASOPHILS # 0.02 x10^3/uL (0.01-0.08); EOSINOPHIL % 0.0 % (0.7-5.8); EOSINOPHILS # 0.00 x10^3/uL (0.04-0.36); MCHC 32.9 g/dl (32.2-35.5); MEAN CELL VOLUME 89.1 fl (79.4-94.8); MEAN PLT VOLUME 10.3 fl (9.4-12.3); MONOCYTE # 0.32 x10^3/uL (0.24-0.86); MONOCYTE % 4.0 % (4.7-12.5); RDW 13.5 % (12.4-16.4)
[2025-09-02 08:37] LABS: GLUCOSE,RANDOM 120.0 mg/dL (74-106)
[2025-09-02 08:38] LABS: TOT PROT 7.6 g/dl (6.4-8.2)
[2025-09-02 08:39] LABS: CO2 26.0 mmol/L (21-32)
[2025-09-02 08:40] LABS: ALK PHOS 87.0 U/L (40-150)
[2025-09-02 08:43] LABS: SGOT/AST 27.0 U/L (5-34); SGPT/ALT 17.0 U/L (0-55)
[2025-09-02 08:44] LABS: CREATININE 0.75 mg/dL (0.55-1.3)
[2025-09-02] MEDS: levETIRAcetam 500 MG/5 ML INJECTION VIAL IVPB SCH (09:43)
[2025-09-02] MEDS: ENOXAPARIN NA (PORCINE) 40 MG/0.4 ML DISP.SYRIN SQ SCH (10:28)
[2025-09-02] MEDS ORDERED: SODIUM CHLORIDE 1,000 ML with POTASSIUM CHLORIDE 40 MEQ IV SCH (13:15)
[2025-09-02] MEDS: OXcarbazepine 300 MG TABLET (UD) PO SCH (13:38)
[2025-09-02] MEDS: POTASSIUM CHLORIDE 40 MEQ in SODIUM CHLORIDE 1,000 ML IV SCH ×2 (14:31→14:32)
[2025-09-02] MEDS ORDERED: DEXTROSE 5%-0.45% SALINE 1,000 ML IV SCH (16:30)
[2025-09-02] MEDS: ACETAMINOPHEN 1000 MG/100 ML BAG IVPB PRN (21:12)
[2025-09-02] MEDS: FOSPHENYTOIN SODIUM 1,500 MG in SODIUM CHLORIDE 100 ML IVPB ONE (22:59)
[2025-09-03] MEDS ORDERED: FOSPHENYTOIN SODIUM 100 MG/2 ML VIAL IVPB SCH (08:00)
[2025-09-03 08:39] LABS: ABSOLUTE IMMATURE GRANULOCYTES 0.03 x10^3/uL (0.0-0.031); BASOPHILS # 0.02 x10^3/uL (0.01-0.08); EOSINOPHIL % 0.0 % (0.7-5.8); EOSINOPHILS # 0.00 x10^3/uL (0.04-0.36); MCHC 33.6 g/dl (32.2-35.5); MEAN CELL VOLUME 89.5 fl (79.4-94.8); MEAN PLT VOLUME 10.0 fl (9.4-12.3); MONOCYTE # 0.80 x10^3/uL (0.24-0.86); MONOCYTE % 12.2 % (4.7-12.5); RDW 13.9 % (12.4-16.4)
[2025-09-03] MEDS: diazePAM CARPU-JECT 10 MG/2 ML DISP.SYRIN IVPUSH PRN (08:54)
[2025-09-03 09:44] LABS: ALK PHOS 79.0 U/L (40-150); CO2 26.0 mmol/L (21-32); CREATININE 0.75 mg/dL (0.55-1.3); GLUCOSE,RANDOM 120.0 mg/dL (74-106); SGOT/AST 29.0 U/L (5-34); SGPT/ALT 17.0 U/L (0-55); TOT PROT 7.3 g/dl (6.4-8.2)
[2025-09-03] MEDS: SODIUM CHLORIDE IVPB SCH (10:45)
[2025-09-03] MEDS: FOSPHENYTOIN SODIUM IVPB SCH (10:45)
[2025-09-03] MEDS ORDERED: DEXMEDETOMIDINE PREMIX 400 MCG/100 ML BAG IVPB ONE (13:46)
[2025-09-03 15:17] LABS: ABSOLUTE IMMATURE GRANULOCYTES 0.02 x10^3/uL (0.0-0.031); BASOPHILS # 0.01 x10^3/uL (0.01-0.08); EOSINOPHIL % 0.0 % (0.7-5.8); EOSINOPHILS # 0.00 x10^3/uL (0.04-0.36); MCHC 33.3 g/dl (32.2-35.5); MEAN CELL VOLUME 89.4 fl (79.4-94.8); MEAN PLT VOLUME 10.5 fl (9.4-12.3); MONOCYTE # 0.67 x10^3/uL (0.24-0.86); MONOCYTE % 12.1 % (4.7-12.5); RDW 14.0 % (12.4-16.4)
[2025-09-03] MEDS: DEXMEDETOMIDINE PREMIX 400 MCG/100 ML BAG IVPB SCH (15:36)
[2025-09-03] MEDS: SODIUM CHLORIDE 1,000 ML IV SCH (15:37)
[2025-09-03] MEDS: PIPERACILLIN/TAZOB 3.375 GM 3.375 GM in DEXTROSE 5%-WATER - 50 ML IVPB SCH (15:37)
[2025-09-03] MEDS: FOSPHENYTOIN SODIUM 200 MG in SODIUM CHLORIDE 100 ML IVPB SCH (21:17)
[2025-09-03] MEDS: CHLORHEXIDINE GLUCONATE 4% CLEANSER FOR DECOLONIZATION TP SCH (21:17)
[2025-09-03] MEDS: MUPIROCIN 2% TOPICAL OINTMENT FOR DECOLONIZATION NS SCH (21:17)
[2025-09-03] MEDS: diazePAM CARPU-JECT 10 MG/2 ML DISP.SYRIN IVPUSH ONE (21:59)
[2025-09-04] MEDS: HALOPERIDOL LACTATE 5 MG/ML IVPUSH ONE (03:55)
[2025-09-04 07:17] LABS: ABSOLUTE IMMATURE GRANULOCYTES 0.01 x10^3/uL (0.0-0.031); BASOPHILS # 0.02 x10^3/uL (0.01-0.08); EOSINOPHIL % 0.4 % (0.7-5.8); EOSINOPHILS # 0.02 x10^3/uL (0.04-0.36); MCHC 33.8 g/dl (32.2-35.5); MEAN CELL VOLUME 88.5 fl (79.4-94.8); MEAN PLT VOLUME 10.5 fl (9.4-12.3); MONOCYTE # 0.79 x10^3/uL (0.24-0.86); MONOCYTE % 14.7 % (4.7-12.5); RDW 13.3 % (12.4-16.4)
[2025-09-04] MEDS ORDERED: diazePAM CARPU-JECT 10 MG/2 ML DISP.SYRIN IVPUSH PRN (07:30)
[2025-09-04 07:46] LABS: GLUCOSE,RANDOM 140.0 mg/dL (74-106)
[2025-09-04 07:47] LABS: TOT PROT 7.4 g/dl (6.4-8.2)
[2025-09-04 07:48] LABS: CO2 25.0 mmol/L (21-32)
[2025-09-04 07:49] LABS: ALK PHOS 77.0 U/L (40-150)
[2025-09-04 07:52] LABS: CREATININE 0.61 mg/dL (0.55-1.3); SGOT/AST 26.0 U/L (5-34); SGPT/ALT 21.0 U/L (0-55)
[2025-09-04] MEDS: KCL 10 MEQ IVPB 10 MEQ/100 ML INFUS.BAG IVPB SCH (08:20)
[2025-09-04] MEDS: levETIRAcetam 500 MG/5 ML INJECTION VIAL IVPB SCH (09:37)
[2025-09-04] MEDS: ENOXAPARIN NA (PORCINE) 40 MG/0.4 ML DISP.SYRIN SQ SCH (09:38)
[2025-09-04] MEDS: diazePAM CARPU-JECT 10 MG/2 ML DISP.SYRIN IVPUSH PRN (13:14)
[2025-09-04 18:58] VITALS: BMI 29.5
[2025-09-04] MEDS: ACETAMINOPHEN 1000 MG/100 ML BAG IVPB PRN (21:05)
[2025-09-04] MEDS: LABETALOL HCL 20 MG/4 ML VIAL IVPUSH PRN (21:05)
[2025-09-05 10:33] LABS: ABSOLUTE IMMATURE GRANULOCYTES 0.00 x10^3/uL (0.0-0.031); BASOPHILS # 0.02 x10^3/uL (0.01-0.08); EOSINOPHIL % 1.0 % (0.7-5.8); EOSINOPHILS # 0.04 x10^3/uL (0.04-0.36); MCHC 32.7 g/dl (32.2-35.5); MEAN CELL VOLUME 91.0 fl (79.4-94.8); MEAN PLT VOLUME 10.3 fl (9.4-12.3); MONOCYTE # 0.46 x10^3/uL (0.24-0.86); MONOCYTE % 11.4 % (4.7-12.5); RDW 13.4 % (12.4-16.4)
[2025-09-05 10:57] LABS: GLUCOSE,RANDOM 116.0 mg/dL (74-106)
[2025-09-05 10:58] LABS: TOT PROT 6.5 g/dl (6.4-8.2)
[2025-09-05 10:59] LABS: CO2 23.0 mmol/L (21-32)
[2025-09-05 11:00] LABS: ALK PHOS 79.0 U/L (40-150)
[2025-09-05 11:03] LABS: CREATININE 0.63 mg/dL (0.55-1.3); SGOT/AST 20.0 U/L (5-34); SGPT/ALT 15.0 U/L (0-55)
[2025-09-05] MEDS: POTASSIUM CHLORIDE ORAL LIQUID 20 MEQ/15 ML PO SCH (12:49)
[2025-09-05] MEDS: KCL 10 MEQ IVPB 10 MEQ/100 ML INFUS.BAG IVPB SCH (12:50)
[2025-09-05] MEDS: diazePAM CARPU-JECT 10 MG/2 ML DISP.SYRIN IVPUSH PRN (23:00)
[2025-09-06 06:45] LABS: ABSOLUTE IMMATURE GRANULOCYTES 0.02 x10^3/uL (0.0-0.031); BASOPHILS # 0.04 x10^3/uL (0.01-0.08); EOSINOPHIL % 1.3 % (0.7-5.8); EOSINOPHILS # 0.10 x10^3/uL (0.04-0.36); MCHC 33.2 g/dl (32.2-35.5); MEAN CELL VOLUME 89.9 fl (79.4-94.8); MEAN PLT VOLUME 10.8 fl (9.4-12.3); MONOCYTE # 0.79 x10^3/uL (0.24-0.86); MONOCYTE % 10.6 % (4.7-12.5); RDW 13.7 % (12.4-16.4)
[2025-09-06 06:54] LABS: GLUCOSE,RANDOM 87.0 mg/dL (74-106); TOT PROT 6.8 g/dl (6.4-8.2)
[2025-09-06 06:55] LABS: CO2 24.0 mmol/L (21-32)
[2025-09-06 06:57] LABS: ALK PHOS 97.0 U/L (40-150)
[2025-09-06 07:00] LABS: CREATININE 0.82 mg/dL (0.55-1.3); SGOT/AST 41.0 U/L (5-34); SGPT/ALT 38.0 U/L (0-55)
[2025-09-06] MEDS: CARVEDILOL 6.25 MG TABLET (FP) PO SCH (09:11)
[2025-09-06] MEDS ORDERED: LABETALOL HCL 20 MG/4 ML VIAL IVPUSH PRN ×2 (15:08→15:37)
[2025-09-06] MEDS ORDERED: diazePAM CARPU-JECT 10 MG/2 ML DISP.SYRIN IVPUSH PRN ×3 (15:08→15:37)
[2025-09-06] MEDS ORDERED: ACETAMINOPHEN 1000 MG/100 ML BAG IVPB PRN ×2 (15:08→15:37)
[2025-09-06] MEDS: PIPERACILLIN/TAZOB 3.375 GM 3.375 GM in DEXTROSE 5%-WATER - 50 ML IVPB SCH (17:16)
[2025-09-06] MEDS: diazePAM CARPU-JECT 10 MG/2 ML DISP.SYRIN IVPUSH PRN (17:30)
[2025-09-06] MEDS ORDERED: PIPERACILLIN/TAZOB 3.375 GM 3.375 GM in DEXTROSE 5%-WATER - 50 ML IVPB SCH (18:00)
[2025-09-06] MEDS: FOSPHENYTOIN SODIUM 200 MG in SODIUM CHLORIDE 100 ML IVPB SCH (21:12)
[2025-09-06] MEDS ORDERED: FOSPHENYTOIN SODIUM 200 MG in SODIUM CHLORIDE 100 ML IVPB SCH (22:00)
[2025-09-06] MEDS ORDERED: MUPIROCIN 2% TOPICAL OINTMENT FOR DECOLONIZATION NS SCH (22:00)
[2025-09-06] MEDS: PHENYTOIN NA EXTENDED 100 MG CAPSULE (FP) PO SCH (22:54)
[2025-09-06] MEDS: levETIRAcetam 500 MG TABLET (FP) PO SCH (22:54)
[2025-09-07 07:42] LABS: ABSOLUTE IMMATURE GRANULOCYTES 0.01 x10^3/uL (0.0-0.031); BASOPHILS # 0.05 x10^3/uL (0.01-0.08); EOSINOPHIL % 3.9 % (0.7-5.8); EOSINOPHILS # 0.20 x10^3/uL (0.04-0.36); MCHC 32.7 g/dl (32.2-35.5); MEAN CELL VOLUME 90.5 fl (79.4-94.8); MEAN PLT VOLUME 10.8 fl (9.4-12.3); MONOCYTE # 0.79 x10^3/uL (0.24-0.86); MONOCYTE % 15.4 % (4.7-12.5); RDW 14.0 % (12.4-16.4)
[2025-09-07 07:48] LABS: GLUCOSE,RANDOM 96.0 mg/dL (74-106); TOT PROT 6.7 g/dl (6.4-8.2)
[2025-09-07 07:49] LABS: CO2 26.0 mmol/L (21-32)
[2025-09-07 07:51] LABS: ALK PHOS 99.0 U/L (40-150)
[2025-09-07 07:54] LABS: CREATININE 0.74 mg/dL (0.55-1.3); SGOT/AST 23.0 U/L (5-34); SGPT/ALT 31.0 U/L (0-55)
[2025-09-07] MEDS ORDERED: ENOXAPARIN NA (PORCINE) 40 MG/0.4 ML DISP.SYRIN SQ SCH (10:00)
[2025-09-07] MEDS: ENOXAPARIN NA (PORCINE) 40 MG/0.4 ML DISP.SYRIN SQ SCH (10:21)
[2025-09-07] MEDS: POTASSIUM CHLORIDE ORAL LIQUID 20 MEQ/15 ML PO ONE (13:03)
[2025-09-07] MEDS: CARVEDILOL 6.25 MG TABLET (FP) PO SCH (21:04)
[2025-09-07] MEDS: ATORVASTATIN CA 40 MG TABLET (FP) PO SCH (21:04)
[2025-09-07] MEDS ORDERED: ATORVASTATIN CA 40 MG TABLET (FP) PO SCH ×2 (22:00)
[2025-09-08 06:46] LABS: MCHC 33.2 g/dl (32.2-35.5); MEAN CELL VOLUME 90.0 fl (79.4-94.8); MEAN PLT VOLUME 10.4 fl (9.4-12.3); RDW 14.3 % (12.4-16.4)
[2025-09-08 07:07] LABS: GLUCOSE,RANDOM 104.0 mg/dL (74-106)
[2025-09-08 07:09] LABS: CO2 26.0 mmol/L (21-32)
[2025-09-08 07:13] LABS: CREATININE 0.65 mg/dL (0.55-1.3)
[2025-09-08 18:35] VITALS: RESP 18
[2025-09-09 07:15] LABS: MCHC 32.3 g/dl (32.2-35.5); MEAN CELL VOLUME 91.9 fl (79.4-94.8); MEAN PLT VOLUME 10.6 fl (9.4-12.3); RDW 14.4 % (12.4-16.4)
[2025-09-09 07:30] LABS: GLUCOSE,RANDOM 102.0 mg/dL (74-106)
[2025-09-09 07:32] LABS: CO2 26.0 mmol/L (21-32)
[2025-09-09 07:36] LABS: CREATININE 0.75 mg/dL (0.55-1.3)
[2025-09-09 09:05] VITALS: BP 148/78; PULSE 99; TEMP 98.1
== END 2025-09-09 12:38 | disposition home or self-care (01) | DRG 53 ==
LOC: JER 17:03 → JERBED 20:40 → OBSVTOIN 21:44 → J6W TELE 22:12 → JICU 09-03 11:45 → J4W 09-06 15:02
PROVIDERS: ADMIT Hospitalist; ATTEND Internal Medicine
DX: G40.801 Other epilepsy, not intractable, with status epilepticus (principal); J69.0 Pneumonitis due to inhalation of food and vomit; G92.8 Other toxic encephalopathy; G81.91 Hemiplegia, unspecified affecting right dominant side; E87.1 Hypo-osmolality and hyponatremia; R47.01 Aphasia; I10 Essential (primary) hypertension; E78.5 Hyperlipidemia, unspecified; Z21 Asymptomatic human immunodeficiency virus [HIV] infection status
CPT/HCPCS: 36415; 70450-TC; 70496-TC; 70498-TC; 70551-TC; 71045-TC-FY; 80048; 80053; 80061; 80177; 80183; 80185; 80307; 81003; 82140; 82550; 82962; 83036; 83605; 83735; 84100; 84484; 85025; 85027; 85610; 85730; 86359; 86360; 86780; 86850; 86900; 86901; 87040; 87086; 93005; 93010; 93306-TC; 95816; 97116-GP; 97162-GP; 99285-25; G0378; Q9967